=== PATIENT | male | born 1965 | race Hispanic/Latino ===

== ENCOUNTER 2017-04-03 13:52 | Inpatient (IN) | payer OTHER ==
[2017-04-03] MEDS ORDERED: Sodium Chloride 0.9% 1,000 ML IV STA ×2 (14:44→15:50)
[2017-04-03] MEDS ORDERED: Piperacillin/Tazobact 3.375 gm 100 ML IVPB STA (14:45)
--- NOTE | 2017-04-03 15:08 | RAD ---
HISTORY: right sided abdominal pain COMPARISON: 08/09/2012 FINDINGS: LUNGS: No active pulmonary disease. PLEURA: No significant pleural effusion identified, no pneumothorax apparent. CARDIOVASCULAR: No radiographic findings to suggest acute or significant cardiovascular disease. OSSEOUS STRUCTURES: No significant abnormalities. VISUALIZED UPPER ABDOMEN: Normal. OTHER FINDINGS: Superior mediastinal prominence likely vascular. Findings accentuated by portable technique. IMPRESSION: No active disease. No significant interval change compared to the prior examination(s).
[2017-04-03 15:18] LABS: VENOUS BLOOD PH 7.44 (7.32-7.43)
[2017-04-03 15:24] LABS: ALB/GLOB RATIO 1.2 (1.1-1.8); ALKALINE PHOSPHATASE 136 U/L (38-126); ALT/SGPT 57 U/L (7-56); AMYLASE 47 U/L (35-125); AST/SGOT 38 U/L (17-59); BILIRUBIN,TOTAL 0.6 mg/dL (0.2-1.3); BLOOD UREA NITROGEN 13 mg/dL (7-21); CALCIUM 9.5 mg/dL (8.4-10.5); CARBON DIOXIDE 28 mmol/L (21-33); CHLORIDE 97 mmol/L (98-107); GFR AFRICAN-AMERICAN > 60; GLUCOSE,RANDOM 104 mg/dL (70-110); LIPASE 65 U/L (23-300); POTASSIUM 4.4 mmol/L (3.6-5.0); SODIUM 137 mmol/L (132-148); TOTAL PROTEIN 8.2 g/dL (5.8-8.3)
[2017-04-03 15:34] LABS: TROPONIN I < 0.01 ng/mL
[2017-04-03 15:44] LABS: BASO # 0.01 K/mm3 (0.0-2.0); BASO % 0.1 % (0.0-3.0); EOS # 0.1 (0.0-0.7); EOS % 1.4 % (1.5-5.0); GRAN # 5.58 (1.4-6.5); GRAN % 65.1 % (50.0-68.0); HEMATOCRIT 38.7 % (42.0-52.0); LYMPH # 2.1 (1.2-3.4); LYMPH % 24.6 % (22.0-35.0); MEAN CELL VOLUME 85.8 fl (80.0-105.0); MEAN CORPUSCULAR HEMOGLOBIN 29.7 pg (25.0-35.0); MEAN CORPUSCULAR HGB CONC 34.6 g/dl (31.0-37.0); MEAN PLATELET VOLUME 9.3 fl (7.0-11.0); MONO # 0.8 (0.1-0.6); MONO % 8.8 % (1.0-6.0); RED CELL DISTRIBUTION WIDTH 12.4 % (11.5-14.5); WHITE BLOOD COUNT 8.6 10^3/ul (4.5-11.0)
[2017-04-03 15:47] LABS: INR 1.12 (0.93-1.08); PARTIAL THROMBOPLASTIN TIME 28.7 Seconds (23.7-30.8)
--- NOTE | 2017-04-03 15:53 | CP.PCM.CON ---
History of Present Illness - History of Present Illness History of Present Illness: General surgery consult note for Dr. Jewel Rojas, PGY-1 Pt S & E at bedside. 51M w/PMH sig for recent dx of cholelithiasis consulted for RUQ ab pain x 8 days. Pt reports that pain started intermittently, then became constant 6 days ago, severe, sharp with radiation to back. Admits to nausea, poor appetite/ poor PO intake, nbnb emesis - multiple episodes x 6 days, multiple episodes of diarrhea last Sat, subjective fevers and chills, diaphoresis. Denies CP, palpitations, constipation, hematemesis, hematochezia, hematuria, dysuria, other complaints. PMH: Cholelithiasis, herniated discs, hx gout PSH: Facial reconstruction, R knee replacement, Left foot sx All: Denies SH: Denies ETOH, tobacco or illicit drug use PMD: [place] Review of Systems - Review of Systems All systems: reviewed and no additional remarkable complaints except - Constitutional Constitutional: Chills, Fever. absent: Increased Appetite - EENT Eyes: absent: Change in Vision Nose/Mouth/Throat: absent: Dysphagia, Sore Throat - Cardiovascular Cardiovascular: absent: Chest Pain, Palpitations - Gastrointestinal Gastrointestinal: Abdominal Pain, Belching, Diarrhea, Nausea, Vomiting. absent : Constipation, Excessive Flatus, Hematemesis, Hematochezia, Melena - Genitourinary Genitourinary: absent: Change in Urinary Stream, Dysuria, Hematuria - Musculoskeletal Musculoskeletal: Back Pain, Neck Pain. absent: Numbness, Tingling - Integumentary Integumentary: absent: Rash - Neurological Neurological: absent: Tremor - Psychiatric Psychiatric: Change in Appetite (poor) - Endocrine Endocrine: absent: Fatigue Past Patient History - Infectious Disease Hx of Infectious Diseases: None - Tetanus Immunizations Tetanus Immunization: Unknown - Past Social History Smoking Status: Never Smoked - MUSCULOSKELETAL/RHEUMATOLOGICAL Hx Gout: Yes - PSYCHIATRIC Hx Substance Use: No - SURGICAL HISTORY Hx Musculoskeletal Surgery: Yes Other/Comment: Right knee replacement. Right foot hammer toe. Facial surgery Meds Allergies/Adverse Reactions: Allergies Allergy/AdvReac Type Severity Reaction Status Date / Time No Known Allergies Allergy Verified 04/03/17 14:14 - Medications Medications: Current Medications Sodium Chloride (Sodium Chloride 0.9%) 1,000 mls @ 999 mls/hr IV .Q1H1M STA Stop: 04/03/17 16:50 Physical Exam - Constitutional Appears: Non-toxic, No Acute Distress - Head Exam Head Exam: ATRAUMATIC, NORMAL INSPECTION, NORMOCEPHALIC - Eye Exam Eye Exam: EOMI, Normal appearance - ENT Exam ENT Exam: Mucous Membranes Moist, Normal Exam - Neck Exam Neck exam: Positive for: Full Rom, Normal Inspection - Respiratory Exam Respiratory Exam: Clear to Auscultation Bilateral, NORMAL BREATHING PATTERN - Cardiovascular Exam Cardiovascular Exam: REGULAR RHYTHM, +S1, +S2 - GI/Abdominal Exam GI & Abdominal Exam: Guarding (RUQ), Hyperactive Bowel Sounds, Soft, Tenderness (RUQ under costal margin with deep palpation). absent: Distended (obese), Firm , Rebound, Rigid - Extremities Exam Extremities exam: Positive for: normal inspection. Negative for: pedal edema - Neurological Exam Neurological exam: Alert, CN II-XII Intact, Oriented x3 - Psychiatric Exam Psychiatric exam: Normal Affect, Normal Mood - Skin Skin Exam: Dry, Intact, Normal Color, Warm Results - Vital Signs Recent Vital Signs: Last Vital Signs Temp 99 F 04/03/17 14:08 Pulse 99 H 04/03/17 14:08 Resp 18 04/03/17 14:08 BP 137/91 H 04/03/17 14:08 Pulse Ox 98 04/03/17 14:08 - Labs Result Diagrams: 04/03/17 14:50 04/03/17 14:50 Labs: Laboratory Results - last 24 hr 04/03/17 04/03/17 14:50 14:50 pO2 34 VBG pH 7.44 H VBG pCO2 44.0 VBG HCO3 29.9 H VBG Total CO2 31.3 H VBG O2 Sat (Calc) 76.8 H VBG Base Excess 5.0 H VBG Potassium 4.4 Sodium 135.0 137 Chloride 99.0 97 L Glucose 108 Lactate 1.4 FiO2 21.0 Potassium 4.4 Carbon Dioxide 28 Anion Gap 16 BUN 13 Creatinine 0.9 Est GFR ( Amer) > 60 Est GFR (Non-Af Amer) > 60 Random Glucose 104 Calcium 9.5 Total Bilirubin 0.6 AST 38 ALT 57 H Alkaline Phosphatase 136 H Lactate Dehydrogenase 413 Total Creatine Kinase 113 Troponin I < 0.01 Total Protein 8.2 Albumin 4.6 Globulin 3.7 Albumin/Globulin Ratio 1.2 Amylase 47 Lipase 65 Venous Blood Potassium 4.4 Assessment & Plan - Assessment and Plan (Free Text) Assessment: 51M w/symptomatic cholelithiasis, possible cholecystitis Plan: NPO Pain mgmt Anti-emetics IVF Abx FU AM labs FU Ab U/S GI/DVT ppx Further recs pending test results DW attending Crystal, PGY-1 - Date & Time Date: 04/03/17 Time: 15:30
--- NOTE | 2017-04-03 16:00 | ED PDOC ---
Arrival/HPI - General Chief Complaint: Abdominal Pain Time Seen by Provider: 04/03/17 14:10 Historian: Patient - History of Present Illness Narrative History of Present Illness (Text): 04/03/17 15:55 Patient is a 51 yo male, presents to ED complaining of constant right upper quadrant abdominal pain since March 26, now worse in intensity and associated with intermittent nausea and vomiting. Patient states that over one month ago he developed right sided back pain that he attributed to possibly his "golf swing." This back pain was intermittent and NOT associated with meals, no nausea, no fever, no chest pain or sob. Approximately March 26 he has sudden onset of right upper quadrant abdominal pain and this pain was radiating to back , associated with nausea and vomiting, lack of appetite. The patient saw his PMD Dr. Vasquez and outpatient MRI and ultrasound was ordered. Ultrasound performed at outside facility revealed gallstones reportedly. Patient states abdominal pain is worse in severity and associated with more nausea and weight loss as well. Past Medical History - Infectious Disease Hx of Infectious Diseases: None - Tetanus Immunization Tetanus Immunization: Unknown - Musculoskeletal/Rheumatological Hx Gout: Yes - Psychiatric Hx Substance Use: No - Surgical History Hx Musculoskeletal Surgery: Yes Other/Comment: Right knee replacement. Right foot hammer toe. Facial surgery Family/Social History Smoking Status: Never Smoked Hx Alcohol Use: No Hx Substance Use: No Allergies/Home Meds Allergies/Adverse Reactions: Allergies No Known Allergies Allergy (Verified 04/03/17 14:14) Home Medications: Home Meds Medication Instructions Recorded Confirmed Tramadol HCl/Acetaminophen 1 tab PO BID 04/03/17 04/03/17 [Tramadol-Acetaminophn 37.5-325] Review of Systems - Review of Systems Constitutional: Fatigue, Weight Change, Fevers. absent: Night Sweats Eyes: absent: Vision Changes ENT: absent: Hearing Changes Respiratory: absent: SOB Cardiovascular: absent: Chest Pain Gastrointestinal: Abdominal Pain, Stool Changes, Nausea, Vomiting, Appetite Changes. absent: Diarrhea, Hematochezia, Hematemesis Genitourinary Male: absent: Dysuria, Frequency Musculoskeletal: Back Pain Skin: absent: Rash Neurological: absent: Headache, Dizziness, Focal Weakness Endocrine: absent: Polyuria, Polydipsia Hemo/Lymphatic: absent: Easy Bleeding Physical Exam - Physical Exam Narrative Physical Exam (Text): 04/03/17 16:02 Head: Atraumatic. Normocephalic. Eyes: PERRL. EOMI. Conjunctivae are not pale. Sclera anicteric. ENT: Mucous membranes are dry. Oropharynx is clear and symmetric. Neck: Supple. Full ROM. No JVD. No lymphadenopathy. Cardiovascular: Regular rate. Regular rhythm. No murmurs, rubs, or gallops. Distal pulses are 2+ and symmetric. Pulmonary/Chest: No evidence of respiratory distress. Clear to auscultation bilaterally. No wheezing, rales or rhonchi. Abdominal: Soft and non-distended. Positive Jones's sign. Focal tenderness to RUQ. No midline or lower abdominal pain. No pulsatile masses. Back: No CVA tenderness. No erythema or edema. No pain with straight leg testing. Extremities: No edema. No cyanosis. No clubbing. Full range of motion in all extremities. No calf tenderness. Skin: Skin is diaphoretic. Neurological: Alert, awake, and oriented. Normal speech. Motor and sensory exam intact. Psychiatric: Good eye contact. Normal interaction, affect, and behavior. 04/03/17 16:04 Vital Signs Reviewed: Yes Vital Signs Temp Pulse Resp BP Pulse Ox 04/03/17 17:30 78 18 143/99 H 100 04/03/17 14:08 99 F 99 H 18 137/91 H 98 Temperature: Afebrile Appearance: Positive for: Ill-Appearing, Uncomfortable Pain Distress: Moderate Mental Status: Positive for: Alert and Oriented X 3 Medical Decision Making ED Course and Treatment: 04/03/17 16:06 Patient's history supplemented by family member at bedside. On exam, patient is uncomfortable, focal palpable RUQ pain. Afebrile but nauseous and tender to palpation. I reviewed the provided ultrasound report from 03/30 performed at outside facility. Although I feel patient has component of musculoskeletal back pain, current symptoms are palpable in abdomen and given recent diagnosis of cholelithiasis I am suspicious of biliary colic and cholecystitis as pain constant and worsening for past several days associated with nausea and fever sensation. IV fluids initiated. Based on initial exam, Dr. Piedra, GI, and Dr. Negro, surgery consulted. Dr. Piedra presented to ED and has evaluated patient. I reviewed ordered medications with patient, agreeable to Toradol, and will also initiate iv fluids and antibiotics given severity of pain, history of chills. Initial lactate unremarkable. Ultrasound and HIDA ordered, results pending. Patient currently with no complaints of chest pain or shortness of breath or exertional symptoms. 04/03/17 20:00 HIDA scan results communicated to surgical team. Patient admitted onto floor. - Lab Interpretations Lab Results: 04/03/17 14:50 04/03/17 14:50 Lab Results 04/03/17 14:50: Sodium 137, Chloride 97 L, Potassium 4.4, Carbon Dioxide 28, Anion Gap 16, BUN 13, Creatinine 0.9, Est GFR ( Amer) > 60, Est GFR (Non- Af Amer) > 60, Random Glucose 104, Calcium 9.5, Total Bilirubin 0.6, AST 38, ALT 57 H, Alkaline Phosphatase 136 H, Lactate Dehydrogenase 413, Total Creatine Kinase 113, Troponin I < 0.01, Total Protein 8.2, Albumin 4.6, Globulin 3.7, Albumin/Globulin Ratio 1.2, Amylase 47, Lipase 65 04/03/17 14:50: pO2 34, VBG pH 7.44 H, VBG pCO2 44.0, VBG HCO3 29.9 H, VBG Total CO2 31.3 H, VBG O2 Sat (Calc) 76.8 H, VBG Base Excess 5.0 H, VBG Potassium 4.4, Sodium 135.0, Chloride 99.0, Glucose 108, Lactate 1.4, FiO2 21.0 , Venous Blood Potassium 4.4 04/03/17 14:50: WBC 8.6, RBC 4.51, Hgb 13.4 L, Hct 38.7 L, MCV 85.8, MCH 29.7, MCHC 34.6, RDW 12.4, Plt Count 444, MPV 9.3, Gran % 65.1, Lymph % (Auto) 24.6, [place] % (Auto) 8.8 H, Eos % (Auto) 1.4 L, Baso % (Auto) 0.1, Gran # 5.58, Lymph # 2.1, [place] # 0.8 H, Eos # 0.1, Baso # 0.01 04/03/17 14:41: PT 12.1 H, INR 1.12 H, APTT 28.7 - RAD Interpretation Radiology Orders: 04/03/17 14:41 CHEST PORTABLE [RAD] Stat 04/03/17 14:55 BILIARY SCAN (HIDA) [NM] Stat 04/03/17 15:45 ABDOMEN COMPLETE [US] Stat - EKG Interpretation EKG Interpretation (Text): 04/03/17 16:10 EKG at 14:53 normal sinus rhythm rate of 83, no acute st elevations Interpreted by ED Physician: Yes Type: 12 lead EKG - Medication Orders Current Medication Orders: Metronidazole (Flagyl) 500 mg in 100 mls @ 100 mls/hr IVPB Q8 KELSY PRN Reason: Protocol Last Admin: 04/03/17 21:14 Dose: 100 mls/hr Ceftriaxone Sodium (Rocephin 1 Gram Ivpb) 1 gm in 100 mls @ 100 mls/hr IVPB DAILY KELSY PRN Reason: Protocol Last Admin: 04/03/17 17:24 Dose: 100 mls/hr Sodium Chloride (Sodium Chloride 0.9%) 1,000 mls @ 150 mls/hr IV .Q6H40M [facility] Last Admin: 04/03/17 17:40 Dose: 150 mls/hr Morphine Sulfate (Morphine) 2 mg IVP Q6H PRN PRN Reason: Pain, moderate (4-7) Last Admin: 04/03/17 21:13 Dose: 2 mg Morphine Sulfate (Morphine) 4 mg IVP Q6H PRN PRN Reason: Pain, severe (8-10) Ondansetron HCl (Zofran Inj) 4 mg IVP Q4H PRN PRN Reason: Nausea/Vomiting Pantoprazole Sodium (Protonix Inj) 40 mg IVP DAILY [facility] Discontinued Medications Famotidine (Pepcid) 20 mg IVP STAT STA Stop: 04/03/17 14:45 Last Admin: 04/03/17 14:53 Dose: 20 mg Sodium Chloride (Sodium Chloride 0.9%) 1,000 mls @ 1,000 mls/hr IV .Q1H STA Stop: 04/03/17 15:43 Last Admin: 04/03/17 14:53 Dose: 1,000 mls/hr Piperacillin Sod/Tazobactam Sod (Zosyn 3.375 In Ns 100ml) 100 mls @ 200 mls/hr IVPB STAT STA PRN Reason: Protocol Stop: 04/03/17 15:14 Last Admin: 04/03/17 15:14 Dose: 200 mls/hr Sodium Chloride (Sodium Chloride 0.9%) 1,000 mls @ 999 mls/hr IV .Q1H1M STA Stop: 04/03/17 16:50 Last Admin: 04/03/17 15:54 Dose: 999 mls/hr Sodium Chloride (Sodium Chloride 0.9%) 1,000 mls @ 100 mls/hr IV .Q10H KELSY Ketorolac Tromethamine (Toradol) 30 mg IVP ONCE ONE Stop: 04/03/17 14:46 Last Admin: 04/03/17 14:53 Dose: 30 mg Ondansetron HCl (Zofran Inj) 4 mg IVP ONCE ONE Stop: 04/03/17 14:45 Last Admin: 04/03/17 14:53 Dose: 4 mg - Scribe Statement The provider has reviewed the documentation as recorded by the Nisha Garay Provider Scribe Attestation: All medical record entries made by the Locibmargaux were at my direction and personally dictated by me. I have reviewed the chart and agree that the record accurately reflects my personal performance of the history, physical exam, medical decision making, and the department course for this patient. I have also personally directed, reviewed, and agree with the discharge instructions and disposition. Disposition/Present on Arrival - Present on Arrival Any Indicators Present on Arrival: No History of DVT/PE: No History of Uncontrolled Diabetes: No Urinary Catheter: No History of Decub. Ulcer: No History Surgical Site Infection Following: None - Disposition Have Diagnosis and Disposition been Completed?: Yes Diagnosis: Abdominal pain, Cholecystitis Disposition: HOSPITALIZED Disposition Time: 16:11 Patient Plan: Admission Patient Problems: Current Active Problems Problem Status Onset Abdominal pain Acute Condition: FAIR
[2017-04-03] MEDS ORDERED: Sodium Chloride 0.9% 1,000 ML IV SCH (16:30)
[2017-04-03] MEDS: cefTRIAXone 1 gm 1 GM/100 ML BAG IVPB SCH (17:24)
[2017-04-03 17:29] LABS: PH,URINE 6.5 (4.7-8.0); URINE BILIRUBIN NEGATIVE (NEGATIVE); URINE BLOOD NEGATIVE (NEGATIVE); URINE GLUCOSE (UA) NEGATIVE (NEGATIVE); URINE KETONE NEGATIVE (NEGATIVE); URINE LEUKOCYTE ESTERASE NEGATIVE Leu/uL (NEGATIVE); URINE PROTEIN NEGATIVE mg/dL (<30 mg/dL); URINE UROBILINOGEN 0.2 E.U./dL (<1 E.U./dL)
[2017-04-03 17:35] LABS: URINE APPEARANCE CLEAR (CLEAR); URINE COLOR YELLOW (YELLOW)
[2017-04-03] MEDS: Sodium Chloride 0.9% 1,000 ML IV SCH (17:40)
--- NOTE | 2017-04-03 18:08 | CP.PCM.HP ---
<Fredy Lima - Last Filed: 04/05/17 13:47> History of Present Illness - History of Present Illness History of Present Illness: This is a 51 yr. old male with a past medical history of Gout who came to [facility] after complaining of RUQ pain since 03/26/17. The patient describes the pain as sharp in nature that initially radiated to the back but now is solely located in the ruq. The patient rates the pain 10/10 in intensity and denies any alleviating factors. The patient began to notice over the past week and a half the pain was worse right after eating and drinking water. The pain was associated with multiple episodes of non-bilious, non- bloody diarrhea. The patient also reported an shortness of breath in conjunction with the pain. The patient was to have an appointment with Dr. Piedra next (04/07/17), however the pain became unbearable and he decided to come in. The patient denies any chest pain, dizziness, numbness, tingling, constipation, diarrhea, headaches, sore throat, or any other complaints. PMHx: Gout (last dose of Colchicine was six months ago) Meds: None Allergies: NKDA Surgeries hx: Right foot hammer toe (2006), Right knee replacement (2012), Left wrist and thumb tendon replacement (1987), Reconstructive facial surgery (1987) Hosp hx: Pneumonia (18yrs old), GI infection (25 yrs. ago) PMD: Dr. Vasquez Present on Admission - Present on Admission Any Indicators Present on Admission: No Review of Systems - Constitutional Constitutional: Weight Loss. absent: Chills, Sleep Apnea - EENT Eyes: As Per HPI. absent: Discharge, Dry Eye Ears: As Per HPI Nose/Mouth/Throat: As Per HPI - Cardiovascular Cardiovascular: As Per HPI - Respiratory Respiratory: As Per HPI - Gastrointestinal Gastrointestinal: As Per HPI - Genitourinary Genitourinary: As Per HPI - Musculoskeletal Musculoskeletal: As Per HPI - Integumentary Integumentary: As Per HPI - Neurological Neurological: As Per HPI - Psychiatric Psychiatric: As Per HPI - Endocrine Endocrine: As Per HPI Past Patient History - Infectious Disease Hx of Infectious Diseases: None - Tetanus Immunizations Tetanus Immunization: Unknown - Past Medical History & Family History Past Family History: Reviewed and not pertinent - Past Social History Smoking Status: Never Smoked - MUSCULOSKELETAL/RHEUMATOLOGICAL Hx Gout: Yes - PSYCHIATRIC Hx Substance Use: No - SURGICAL HISTORY Hx Musculoskeletal Surgery: Yes Other/Comment: Right knee replacement. Right foot hammer toe. Facial surgery Meds Allergies/Adverse Reactions: Allergies Allergy/AdvReac Type Severity Reaction Status Date / Time No Known Allergies Allergy Verified 04/03/17 14:14 Physical Exam - Constitutional Appears: Well, Non-toxic - Head Exam Head Exam: ATRAUMATIC, NORMAL INSPECTION, NORMOCEPHALIC - Eye Exam Eye Exam: EOMI, Normal appearance, PERRL Pupil Exam: NORMAL ACCOMODATION, PERRL - ENT Exam ENT Exam: Mucous Membranes Moist - Neck Exam Neck exam: Positive for: Normal Inspection - Respiratory Exam Respiratory Exam: Clear to Auscultation Bilateral, NORMAL BREATHING PATTERN. absent: Accessory Muscle Use, Chest Wall Tenderness, Rales, Rhonchi - Cardiovascular Exam Cardiovascular Exam: REGULAR RHYTHM, RRR, +S1, +S2. absent: Rubs - GI/Abdominal Exam Additional comments: Positive Jones's sign. - Extremities Exam Extremities exam: Positive for: normal inspection - Back Exam Back exam: NORMAL INSPECTION. absent: CVA tenderness (L), CVA tenderness (R), paraspinal tenderness - Neurological Exam Neurological exam: Alert, CN II-XII Intact, Normal Gait, Oriented x3, Reflexes Normal - Psychiatric Exam Psychiatric exam: Flat Affect, Normal Affect, Normal Mood - Skin Skin Exam: Dry, Intact, Normal Color Results - Vital Signs Recent Vital Signs: Last Vital Signs Temp 99 F 04/03/17 14:08 Pulse 78 04/03/17 17:30 Resp 18 04/03/17 17:30 BP 143/99 H 04/03/17 17:30 Pulse Ox 100 04/03/17 17:30 - Labs Result Diagrams: 04/05/17 08:15 04/05/17 08:15 Labs: Laboratory Results - last 24 hr 04/03/17 17:11 Urine Color Yellow Urine Appearance Clear Urine pH 6.5 Ur Specific [place] <= 1.005 Urine Protein Negative Urine Glucose (UA) Negative Urine Ketones Negative Urine Blood Negative Urine Nitrate Negative Urine Bilirubin Negative Urine Urobilinogen 0.2 Ur Leukocyte Esterase Negative - EKG Data EKG Interpreted by: ER Physician EKG shows normal: Sinus rhythm Rate: Normal - EKG Data When Compared to Previous EKG: No Significant Change Assessment & Plan - Assessment and Plan (Free Text) Assessment: 1.Cholecystitis vs. biliary colic -Positive Jones's sign noted on physical exam. VS: 99f, 137/91, 98RA, 99HR -Ordered Abdominal u/s : showed thickened gall bladder and a gallstone within the duct. -T. Bili-0.6, ALT-57, AST-38 -Hida scan ordered and pending -Surgery Consult appreciated. -GI consult appreciated. -Patient kept NPO and given bolus IV fluids (NS) -Continue IV fluids. Patient is medically cleared for surgery -Patient expected to have Cholecystecomy tomorrow per Surgery. 2.Less likely ascending cholangitis vs. biliary colic -RUQ pain present on PE. Negative for jaundice and afebrile -Consider ERCP if Clinical picture changes overnight. 3. Less likely viral hepatitis -ALT elevated at 57. -Denies any risk factors. Patient Afebrile and no signs of leukocytosis. 3.Gout -Patient denies any recent flare up. -Last dose of Colchicine was taken six months ago. -Monitor and have patient follow up as outpatient. 4.GI ppx -Start Protonix 5. DVT ppx -SCD's <Yan Avalos - Last Filed: 04/05/17 14:00> Results - Vital Signs Recent Vital Signs: Last Vital Signs Temp 98.7 F 04/05/17 13:30 Pulse 80 04/05/17 13:30 Resp 18 04/05/17 13:30 BP 147/93 H 04/05/17 13:30 Pulse Ox 98 04/05/17 13:30 - Labs Result Diagrams: 04/05/17 08:15 04/05/17 08:15 Labs: Laboratory Results - last 24 hr 04/05/17 04/05/17 08:15 08:15 WBC 7.1 RBC 4.07 Hgb 12.1 L Hct 35.2 L MCV 86.5 MCH 29.7 MCHC 34.4 RDW 12.3 Plt Count 383 MPV 9.0 Gran % 62.8 Lymph % (Auto) 23.2 [place] % (Auto) 10.0 H Eos % (Auto) 3.9 Baso % (Auto) 0.1 Gran # 4.46 Lymph # 1.7 [place] # 0.7 H Eos # 0.3 Baso # 0.01 Sodium 140 Potassium 4.3 Chloride 101 Carbon Dioxide 28 Anion Gap 15 BUN 12 Creatinine 0.9 Est GFR ( Amer) > 60 Est GFR (Non-Af Amer) > 60 Random Glucose 97 Calcium 8.9 Total Bilirubin 0.7 AST 46 ALT 52 Alkaline Phosphatase 119 Total Protein 7.5 Albumin 4.0 Globulin 3.5 Albumin/Globulin Ratio 1.1 Attending/Attestation - Attestation I have personally seen and examined this patient.: Yes I have fully participated in the care of the patient.: Yes I have reviewed all pertinent clinical information: Yes Notes (Text): 04/05/17 13:59 Attending note; Patient seen and examined with resident in ER. Patient is a 51-year-old male admitted with right upper quadrant pain. Patient with a history of gallstones now with recurrent biliary colic. Ultrasound showed gallstones. HIDA scan ordered. Surgery evaluation with Dr. Negro requested. Nothing by mouth, IV fluids, IV antibiotics. Upon discharge the patient will follow-up with PMD Dr. Vasquez.
[2017-04-03 19:47] VITALS: BMI 31.3
--- NOTE | 2017-04-03 19:58 | US ---
EXAM: US Abdomen Complete EXAM DATE/TIME: 04/03/2017 3:45 PM CLINICAL HISTORY: 51 years old, male; Pain; Abdominal pain; Generalized TECHNIQUE: Real-time ultrasound of the abdomen (complete) with image documentation. COMPARISON: There are no prior studies for comparison. FINDINGS: Liver: Liver is unremarkable.There is hepatopedal flow in the main portal vein. Gallbladder: Gallbladder is distended with sludge. There is a 1.65 cm shadowing stone. Gallbladder wall measures 2.4 mm in width. Common bile duct: Common bile duct measures 3.7 mm in diameter. Pancreas: Pancreas is almost completely obscured by bowel gas. Kidneys: Kidneys are unremarkable. Spleen: Spleen is unremarkable. Aorta: Visualized portions of the aorta and inferior vena cava are unremarkable. Inferior vena cava: See above. IMPRESSION: Distended gallbladder with stones and sludge, no wall thickening or ductal dilatation; limited evaluation of midline structures to the bowel gas and body habitus Patient was not tender over the gallbladder
[2017-04-03] MEDS: Morphine 2 mg/ml ISec IVP PRN (21:13)
[2017-04-03] MEDS: metroNIDAZOLE IV 500 mg/100 ml 500 MG/100 ML BAG IVPB SCH (21:14)
[2017-04-03] MEDS ORDERED: Simethicone 40 mg/0.6 ml Liquid (30 ml) PO ONE (23:15)
[2017-04-04] MEDS ORDERED: Morphine 2 mg/ml ISec IVP ONE (00:45)
--- NOTE | 2017-04-04 04:13 | CON ---
DATE: 04/03/2017 HISTORY OF PRESENT ILLNESS: This patient was seen and evaluated earlier. Discussed with ER physician Dr. Nesbitt and also with the patient's family and who was at bedside along with the patient. This 51-year-old patient with past medical history of gout. He has an abdominal pain more than a week ago and the patient experienced the pain mainly in the right upper quadrant of the back area, went to the emergency room where he had CAT scan done. She was sent home to be followed up and she was seen by the primary physician and who ordered for the ultrasound, which showed gallstones. The patient had an appointment to see me in the office this week, but presented with worsening of the abdominal pain and the patient became more constant. The patient did have an ultrasound done as an outpatient, which showed gallstones. No fever. ALLERGIES: NO KNOWN DRUG ALLERGIES. PAST SURGICAL HISTORY: Right hammer toe surgery and also right knee replacement in 2012 and left wrist and thumb tendon replacement in 1997, recurrent facial surgery in 1997. PAST MEDICAL HISTORY: Also includes history of pneumonia many many years ago. SOCIAL HISTORY: He denies smoking or alcohol. REVIEW OF SYSTEMS: Positive as above. Other systems reviewed. PHYSICAL EXAMINATION: GENERAL: The patient is lying on the bed, not in acute distress. VITAL SIGNS: Temperature 99, pulse 78, blood pressure 143/99, respirations 18, and O2 saturation 100% on room air. HEENT: Atraumatic and anicteric. NECK: Supple. HEART: S1 and S2 heard. LUNGS: Bilateral air entry present. ABDOMEN: Soft. There is no mass palpable. No tenderness. EXTREMITIES: No edema. No cyanosis. LABORATORY DATA: Hemoglobin 13.4, hematocrit 38.7, WBC is 8.6, and platelets 444. Chemistry is essentially unremarkable. ALT 57. The patient did have an ultrasound scan of the abdomen done, which shows gallbladder distended with the sludge. There is 1.65 cm shadowing stone noticed. Gallbladder wall is normal with 2.4. Common bile duct appeared normal 3.7. The patient also had HIDA scan done. HIDA scan report is pending. IMPRESSION AND PLAN: This 51-year-old patient admitted with gallstones. Admitted with constant pain, worsening of the symptoms for the past few days. History of gouty arthritis. The patient has mildly elevated liver enzymes; however, the common bile duct is normal in size. Clinically, rule out biliary colic. Rule out cholecystitis as the intensity of the pain is severe and also constant. We would recommend; 1. Followup of the official HIDA scan results. 2. Continue the antibiotics. Followup of the labs. Empiric therapy with PPI. I would recommend intraoperative cholangiogram if cholecystectomy is considered. Thank you very much for allowing us to participate in the care of the patient. Marty Piedra MD MTDJessica
[2017-04-04] MEDS: Morphine 2 mg/ml ISec IVP PRN ×2 (05:35→14:45)
[2017-04-04] MEDS: metroNIDAZOLE IV 500 mg/100 ml 500 MG/100 ML BAG IVPB SCH ×3 (05:35→21:31)
[2017-04-04] MEDS: Sodium Chloride 0.9% 1,000 ML IV SCH ×2 (05:37→10:15)
[2017-04-04 07:08] LABS: BASO # 0.02 K/mm3 (0.0-2.0); BASO % 0.3 % (0.0-3.0); EOS # 0.3 (0.0-0.7); EOS % 3.7 % (1.5-5.0); GRAN # 4.34 (1.4-6.5); GRAN % 58.8 % (50.0-68.0); HEMATOCRIT 36.2 % (42.0-52.0); LYMPH % 27.6 % (22.0-35.0); MEAN CELL VOLUME 87.2 fl (80.0-105.0); MEAN CORPUSCULAR HEMOGLOBIN 29.2 pg (25.0-35.0); MEAN CORPUSCULAR HGB CONC 33.4 g/dl (31.0-37.0); MEAN PLATELET VOLUME 9.2 fl (7.0-11.0); MONO # 0.7 (0.1-0.6); MONO % 9.6 % (1.0-6.0); RED CELL DISTRIBUTION WIDTH 12.5 % (11.5-14.5); WHITE BLOOD COUNT 7.4 10^3/ul (4.5-11.0)
[2017-04-04 07:14] LABS: INR 1.11 (0.93-1.08)
[2017-04-04 07:19] LABS: ALB/GLOB RATIO 1.1 (1.1-1.8); ALKALINE PHOSPHATASE 121 U/L (38-126); ALT/SGPT 48 U/L (7-56); AST/SGOT 37 U/L (17-59); BILIRUBIN,TOTAL 0.8 mg/dL (0.2-1.3); BLOOD UREA NITROGEN 11 mg/dL (7-21); CALCIUM 8.9 mg/dL (8.4-10.5); CARBON DIOXIDE 27 mmol/L (21-33); CHLORIDE 101 mmol/L (95-110); GFR AFRICAN-AMERICAN > 60; GLUCOSE,RANDOM 101 mg/dL (70-110); POTASSIUM 4.5 mmol/L (3.6-5.0); SODIUM 137 mmol/L (132-148); TOTAL PROTEIN 7.8 g/dL (5.8-8.3)
--- NOTE | 2017-04-04 10:11 | NM ---
PROCEDURE: Nuclear Medicine Hepatobiliary Scan HISTORY: evaluate for cholecystitis COMPARISON: None available. TECHNIQUE: 5.9 mCi of technetium 99m Mebrofenin was administered intravenously. Planar images of the abdomen were obtained at 5 min intervals to 60 mins. Delayed images were also obtained. FINDINGS: LIVER: Timely and homogenous uptake. COMMON BILE DUCT: identified at 5 mins. GALLBLADDER: Nonvisualized even on delayed images SMALL BOWEL: Identified at 30 mins. The report concurs with the preliminary [facility] report IMPRESSION: Nonvisualization of the gallbladder consistent with cholecystitis
[2017-04-04] MEDS: cefTRIAXone 1 gm 1 GM/100 ML BAG IVPB SCH (10:15)
--- NOTE | 2017-04-04 11:16 | CARD ---
APPROVED REPORT EKG Measurement Heart [id number] [place] 176P54 [id number] <Conclusion> Normal sinus rhythm Normal ECG
[2017-04-04] MEDS ORDERED: Bupivacaine 0.5% Inj(30mL) ONE ×3 (11:24→12:19)
[2017-04-04] MEDS ORDERED: Iohexol 240 (50 ml) ONE ×2 (11:24→12:16)
--- NOTE | 2017-04-04 12:10 | CP.PCM.PN ---
<Fredy Lima - Last Filed: 04/04/17 17:53> Subjective - Date & Time of Evaluation Date of Evaluation: 04/04/17 Time of Evaluation: 07:07 - Subjective Subjective: Patient was seen and examined at bedside. Patient reports pain in the right upper quadrant that he rates a 6/10. She also reports nausea in conjunction with the abdominal pain. The patient has yet to have a bowel movement since being admitted yesterday. She denies any chest pain vomiting, lightheadedness, dizziness, diarrhea, or any other complaints. Objective - Vital Signs/Intake and Output Vital Signs (last 24 hours): Temp Pulse Resp BP Pulse Ox 98.2 F 75 19 142/85 100 04/04/17 07:30 04/04/17 07:30 04/04/17 07:30 04/04/17 07:30 04/04/17 07:30 Intake and Output: 04/04/17 04/04/17 06:59 18:59 Intake Total 240 Output Total 0 Balance 240 - Medications Medications: Current Medications Metronidazole (Flagyl) 500 mg in 100 mls @ 100 mls/hr IVPB Q8 [facility] PRN Reason: Protocol Last Admin: 04/04/17 05:35 Dose: 100 mls/hr Ceftriaxone Sodium (Rocephin 1 Gram Ivpb) 1 gm in 100 mls @ 100 mls/hr IVPB DAILY [facility] PRN Reason: Protocol Last Admin: 04/04/17 10:15 Dose: 100 mls/hr Sodium Chloride (Sodium Chloride 0.9%) 1,000 mls @ 150 mls/hr IV .Q6H40M [facility] Last Admin: 04/04/17 10:15 Dose: 150 mls/hr Morphine Sulfate (Morphine) 2 mg IVP Q6H PRN PRN Reason: Pain, moderate (4-7) Last Admin: 04/04/17 05:35 Dose: 2 mg Morphine Sulfate (Morphine) 4 mg IVP Q6H PRN PRN Reason: Pain, severe (8-10) Ondansetron HCl (Zofran Inj) 4 mg IVP Q4H PRN PRN Reason: Nausea/Vomiting Last Admin: 04/04/17 08:02 Dose: 4 mg Pantoprazole Sodium (Protonix Inj) 40 mg IVP DAILY [facility] Last Admin: 04/04/17 10:15 Dose: 40 mg - Labs Labs: 04/04/17 06:15 04/04/17 06:15 PT 12.0 Seconds (9.9-11.8) H 04/04/17 06:15 INR 1.11 (0.93-1.08) H 04/04/17 06:15 APTT 28.0 Seconds (23.7-30.8) 04/04/17 06:15 - Head Exam Head Exam: ATRAUMATIC, NORMAL INSPECTION, NORMOCEPHALIC - Eye Exam Eye Exam: EOMI, Normal appearance, PERRL Pupil Exam: NORMAL ACCOMODATION, PERRL. absent: Irregular - ENT Exam ENT Exam: Mucous Membranes Moist - Neck Exam Neck Exam: Normal Inspection - Respiratory Exam Respiratory Exam: Clear to Ausculation Bilateral, NORMAL BREATHING PATTERN. absent: Rales, Rhonchi - Cardiovascular Exam Cardiovascular Exam: REGULAR RHYTHM, +S1, +S2 - GI/Abdominal Exam GI & Abdominal Exam: Soft, Tenderness (Tenderness in the ruq to palpation.), Normal Bowel Sounds - Extremities Exam Extremities Exam: Full ROM - Back Exam Back Exam: NORMAL INSPECTION. absent: paraspinal tenderness - Neurological Exam Neurological Exam: Alert, Awake, CN II-XII Intact, Normal Gait - Psychiatric Exam Psychiatric exam: Normal Affect, Normal Mood - Skin Skin Exam: Dry, Intact Assessment and Plan - Assessment and Plan (Free Text) Assessment: This is a 51 yr old male with a past medical history of gout who came in with RUQ pain. Plan: 1.Cholecystitis vs. biliary colic -Positive Jones's sign noted on physical exam. VS: 99f, 137/91, 98RA, 99HR -Ordered Abdominal u/s : showed thickened gall bladder and a gallstone within the duct. -T. Bili-0.6, ALT-57, AST-38 -Hida scan: consistent with acute cholecystitis and no signs of biliary obstruction -Surgery Consult appreciated. -GI consult appreciated. -Patient kept NPO and given bolus IV fluids (NS) -Continue IV fluids. Patient is medically cleared for surgery -Patient expected to have Cholecystecomy today. 2.Less likely ascending cholangitis vs. biliary colic -RUQ pain present on PE. Negative for jaundice and afebrile -Consider ERCP if Clinical picture doesn't improve after surgery. 3.Gout -Patient denies any recent flare up. -Last dose of Colchicine was taken six months ago. -Monitor and have patient follow up as outpatient. 4.GI ppx -Start Protonix 5. DVT ppx -SCD's <Yan Avalos - Last Filed: 04/04/17 19:07> Objective - Vital Signs/Intake and Output Vital Signs (last 24 hours): Temp Pulse Resp BP Pulse Ox 98.8 F 81 16 143/100 H 100 04/04/17 16:00 04/04/17 16:00 04/04/17 16:00 04/04/17 16:00 04/04/17 16:00 - Medications Medications: Current Medications Metronidazole (Flagyl) 500 mg in 100 mls @ 100 mls/hr IVPB Q8 [facility] PRN Reason: Protocol Last Admin: 04/04/17 14:42 Dose: 100 mls/hr Ceftriaxone Sodium (Rocephin 1 Gram Ivpb) 1 gm in 100 mls @ 100 mls/hr IVPB DAILY [facility] PRN Reason: Protocol Last Admin: 04/04/17 10:15 Dose: 100 mls/hr Sodium Chloride (Sodium Chloride 0.9%) 1,000 mls @ 150 mls/hr IV .Q6H40M [facility] Last Admin: 04/04/17 10:15 Dose: 150 mls/hr Morphine Sulfate (Morphine) 2 mg IVP Q6H PRN PRN Reason: Pain, moderate (4-7) Last Admin: 04/04/17 14:45 Dose: 2 mg Morphine Sulfate (Morphine) 4 mg IVP Q6H PRN PRN Reason: Pain, severe (8-10) Ondansetron HCl (Zofran Inj) 4 mg IVP Q4H PRN PRN Reason: Nausea/Vomiting Last Admin: 04/04/17 17:02 Dose: 4 mg Pantoprazole Sodium (Protonix Inj) 40 mg IVP DAILY [facility] Last Admin: 04/04/17 10:15 Dose: 40 mg - Labs Labs: 04/04/17 06:15 04/04/17 06:15 PT 12.0 Seconds (9.9-11.8) H 04/04/17 06:15 INR 1.11 (0.93-1.08) H 04/04/17 06:15 APTT 28.0 Seconds (23.7-30.8) 04/04/17 06:15 Attending/Attestation - Attestation I have personally seen and examined this patient.: Yes I have fully participated in the care of the patient.: Yes I have reviewed all pertinent clinical information, including history, physical exam and plan: Yes Notes (Text): 04/04/17 19:05 Attending note; Patient seen and examined with resident. Patient is a 51-year-old male admitted with right upper quadrant pain. Patient with a history of gallstones now with recurrent biliary colic. Ultrasound showed gallstones. HIDA scan is positive for acute cholecystitis. Surgery evaluation appreciated Nothing by mouth, IV fluids, IV antibiotics. Plan for laparoscopic cholecystectomy today by Dr. Negro. Upon discharge the patient will follow-up with PMD Dr. Vasquez.
--- NOTE | 2017-04-04 13:56 | CP.PCM.PN ---
<Arianna Cardenas - Last Filed: 04/04/17 13:54> Subjective - Date & Time of Evaluation Date of Evaluation: 04/04/17 Time of Evaluation: 09:25 - Subjective Subjective: seen and examined at the bedside earlier today, the chart was reviewed. Patient is nothing by mouth for OR today, no acute events reported, abdominal pain is a bit better. Objective - Vital Signs/Intake and Output Vital Signs (last 24 hours): Temp Pulse Resp BP Pulse Ox 98.2 F 75 19 142/85 100 04/04/17 07:30 04/04/17 07:30 04/04/17 07:30 04/04/17 07:30 04/04/17 07:30 Intake and Output: 04/04/17 04/04/17 06:59 18:59 Intake Total 240 Output Total 0 Balance 240 - Medications Medications: Current Medications Metronidazole (Flagyl) 500 mg in 100 mls @ 100 mls/hr IVPB Q8 [facility] PRN Reason: Protocol Last Admin: 04/04/17 05:35 Dose: 100 mls/hr Ceftriaxone Sodium (Rocephin 1 Gram Ivpb) 1 gm in 100 mls @ 100 mls/hr IVPB DAILY [facility] PRN Reason: Protocol Last Admin: 04/04/17 10:15 Dose: 100 mls/hr Sodium Chloride (Sodium Chloride 0.9%) 1,000 mls @ 150 mls/hr IV .Q6H40M [facility] Last Admin: 04/04/17 10:15 Dose: 150 mls/hr Morphine Sulfate (Morphine) 2 mg IVP Q6H PRN PRN Reason: Pain, moderate (4-7) Last Admin: 04/04/17 05:35 Dose: 2 mg Morphine Sulfate (Morphine) 4 mg IVP Q6H PRN PRN Reason: Pain, severe (8-10) Ondansetron HCl (Zofran Inj) 4 mg IVP Q4H PRN PRN Reason: Nausea/Vomiting Last Admin: 04/04/17 08:02 Dose: 4 mg Pantoprazole Sodium (Protonix Inj) 40 mg IVP DAILY [facility] Last Admin: 04/04/17 10:15 Dose: 40 mg - Labs Labs: 04/04/17 06:15 04/04/17 06:15 PT 12.0 Seconds (9.9-11.8) H 04/04/17 06:15 INR 1.11 (0.93-1.08) H 04/04/17 06:15 APTT 28.0 Seconds (23.7-30.8) 04/04/17 06:15 - Constitutional Appears: No Acute Distress - Eye Exam Eye Exam: Normal appearance. absent: Scleral icterus - ENT Exam ENT Exam: Mucous Membranes Moist - Neck Exam Neck Exam: Normal Inspection - Respiratory Exam Respiratory Exam: NORMAL BREATHING PATTERN. absent: Respiratory Distress - Cardiovascular Exam Cardiovascular Exam: +S1, +S2 - GI/Abdominal Exam GI & Abdominal Exam: Soft, Tenderness, Normal Bowel Sounds. absent: Distended, Guarding, Rebound - Extremities Exam Extremities Exam: Calf Tenderness, Normal Capillary Refill. absent: Pedal Edema - Neurological Exam Neurological Exam: Alert, Awake, Oriented x3 Assessment and Plan - Assessment and Plan (Free Text) Assessment: Assessment: Acute cholecystitis Cholelithiasis Gouty arthritis Plan: Patient is scheduled for today Continue IV antibiotics Continue GI prophylaxis DVT prophylaxis Continue IV fluids for hydration Trend LFTs Further plans as per surgery Seen and discussed with Dr. Piedra. <Marty Piedra V - Last Filed: 04/04/17 21:52> Objective - Vital Signs/Intake and Output Vital Signs (last 24 hours): Temp Pulse Resp BP Pulse Ox 98.8 F 81 16 143/100 H 100 04/04/17 16:00 04/04/17 16:00 04/04/17 16:00 04/04/17 16:00 04/04/17 16:00 Intake and Output: 04/04/17 04/05/17 18:59 06:59 Intake Total 600 Balance 600 - Medications Medications: Current Medications Metronidazole (Flagyl) 500 mg in 100 mls @ 100 mls/hr IVPB Q8 [facility] PRN Reason: Protocol Last Admin: 04/04/17 21:31 Dose: 100 mls/hr Ceftriaxone Sodium (Rocephin 1 Gram Ivpb) 1 gm in 100 mls @ 100 mls/hr IVPB DAILY [facility] PRN Reason: Protocol Last Admin: 04/04/17 10:15 Dose: 100 mls/hr Sodium Chloride (Sodium Chloride 0.9%) 1,000 mls @ 150 mls/hr IV .Q6H40M [facility] Last Admin: 04/04/17 10:15 Dose: 150 mls/hr Morphine Sulfate (Morphine) 2 mg IVP Q6H PRN PRN Reason: Pain, moderate (4-7) Last Admin: 04/04/17 14:45 Dose: 2 mg Morphine Sulfate (Morphine) 4 mg IVP Q6H PRN PRN Reason: Pain, severe (8-10) Last Admin: 04/04/17 20:38 Dose: 4 mg Ondansetron HCl (Zofran Inj) 4 mg IVP Q4H PRN PRN Reason: Nausea/Vomiting Last Admin: 04/04/17 20:38 Dose: 4 mg Pantoprazole Sodium (Protonix Inj) 40 mg IVP DAILY [facility] Last Admin: 04/04/17 10:15 Dose: 40 mg - Labs Labs: 04/04/17 06:15 04/04/17 06:15 PT 12.0 Seconds (9.9-11.8) H 04/04/17 06:15 INR 1.11 (0.93-1.08) H 04/04/17 06:15 APTT 28.0 Seconds (23.7-30.8) 04/04/17 06:15 Attending/Attestation - Attestation I have personally seen and examined this patient.: Yes I have fully participated in the care of the patient.: Yes I have reviewed all pertinent clinical information, including history, physical exam and plan: Yes Notes (Text): this patient was seen and evaluated. Today this is an addendum to the GI progress report dictated by Arianna Cardenas APN. Patient is feeling much better. Abdomen soft only minimal tenderness to right upper quadrant area no rebound LFT has normalized. CBD normal. Plan to have laparoscopic cholecystectomy. Thank you very much for allowing us to participate in the care of the patient 04/04/17 21:51
--- NOTE | 2017-04-04 17:21 | CARD ---
APPROVED REPORT EKG Measurement Heart [id number] [place] 156P50 [id number] <Conclusion> Normal sinus rhythm Normal ECG
[2017-04-04] MEDS: Morphine 4 mg/ml ISec IVP PRN (20:38)
[2017-04-05] MEDS: Sodium Chloride 0.9% 1,000 ML IV SCH ×2 (01:33→09:53)
[2017-04-05] MEDS: Morphine 4 mg/ml ISec IVP PRN (02:19)
[2017-04-05] MEDS: metroNIDAZOLE IV 500 mg/100 ml 500 MG/100 ML BAG IVPB SCH ×3 (05:17→21:12)
[2017-04-05 08:34] LABS: BASO # 0.01 K/mm3 (0.0-2.0); BASO % 0.1 % (0.0-3.0); EOS # 0.3 (0.0-0.7); EOS % 3.9 % (1.5-5.0); GRAN # 4.46 (1.4-6.5); GRAN % 62.8 % (50.0-68.0); HEMATOCRIT 35.2 % (42.0-52.0); LYMPH # 1.7 (1.2-3.4); LYMPH % 23.2 % (22.0-35.0); MEAN CELL VOLUME 86.5 fl (80.0-105.0); MEAN CORPUSCULAR HEMOGLOBIN 29.7 pg (25.0-35.0); MEAN CORPUSCULAR HGB CONC 34.4 g/dl (31.0-37.0); MONO # 0.7 (0.1-0.6); RED CELL DISTRIBUTION WIDTH 12.3 % (11.5-14.5); WHITE BLOOD COUNT 7.1 10^3/ul (4.5-11.0)
[2017-04-05 08:46] LABS: ALB/GLOB RATIO 1.1 (1.1-1.8); ALKALINE PHOSPHATASE 119 U/L (38-126); ALT/SGPT 52 U/L (7-56); AST/SGOT 46 U/L (17-59); BILIRUBIN,TOTAL 0.7 mg/dL (0.2-1.3); BLOOD UREA NITROGEN 12 mg/dL (7-21); CALCIUM 8.9 mg/dL (8.4-10.5); CARBON DIOXIDE 28 mmol/L (21-33); CHLORIDE 101 mmol/L (98-107); GFR AFRICAN-AMERICAN > 60; GLUCOSE,RANDOM 97 mg/dL (70-110); POTASSIUM 4.3 mmol/L (3.6-5.0); SODIUM 140 mmol/L (132-148); TOTAL PROTEIN 7.5 g/dL (5.8-8.3)
--- NOTE | 2017-04-05 09:51 | CP.PCM.PN ---
<Fredy Lima - Last Filed: 04/05/17 09:52> Subjective - Date & Time of Evaluation Date of Evaluation: 04/05/17 Time of Evaluation: 07:07 - Subjective Subjective: Patient was seen and examined at bedside. The patient continues to report the RUQ pain. The patient denies any radiation and continues to rate it a 6/10 in severity. The patient was scheduled to have the laproscopic cholecystectomy yesterday however it was postponed. The patient is expected to have the procedure done today. The patient denies any chest pain, shortness of breath, nausea, vomiting , headaches, sore throat, or any other complaints. Objective - Vital Signs/Intake and Output Vital Signs (last 24 hours): Temp Pulse Resp BP Pulse Ox 98.6 F 82 20 143/84 98 04/05/17 07:30 04/05/17 07:30 04/05/17 07:30 04/05/17 07:30 04/05/17 07:30 Intake and Output: 04/05/17 04/05/17 06:59 18:59 Intake Total 2400 Output Total 0 Balance 2400 - Medications Medications: Current Medications Metronidazole (Flagyl) 500 mg in 100 mls @ 100 mls/hr IVPB Q8 [facility] PRN Reason: Protocol Last Admin: 04/05/17 05:17 Dose: 100 mls/hr Ceftriaxone Sodium (Rocephin 1 Gram Ivpb) 1 gm in 100 mls @ 100 mls/hr IVPB DAILY [facility] PRN Reason: Protocol Last Admin: 04/04/17 10:15 Dose: 100 mls/hr Sodium Chloride (Sodium Chloride 0.9%) 1,000 mls @ 150 mls/hr IV .Q6H40M [facility] Last Admin: 04/05/17 01:33 Dose: 150 mls/hr Morphine Sulfate (Morphine) 2 mg IVP Q6H PRN PRN Reason: Pain, moderate (4-7) Last Admin: 04/04/17 14:45 Dose: 2 mg Morphine Sulfate (Morphine) 4 mg IVP Q6H PRN PRN Reason: Pain, severe (8-10) Last Admin: 04/05/17 02:19 Dose: 4 mg Ondansetron HCl (Zofran Inj) 4 mg IVP Q4H PRN PRN Reason: Nausea/Vomiting Last Admin: 04/05/17 02:20 Dose: 4 mg Pantoprazole Sodium (Protonix Inj) 40 mg IVP DAILY [facility] Last Admin: 04/04/17 10:15 Dose: 40 mg - Labs Labs: 04/05/17 08:15 04/05/17 08:15 PT 12.0 Seconds (9.9-11.8) H 04/04/17 06:15 INR 1.11 (0.93-1.08) H 04/04/17 06:15 APTT 28.0 Seconds (23.7-30.8) 04/04/17 06:15 - Head Exam Head Exam: ATRAUMATIC, NORMAL INSPECTION, NORMOCEPHALIC - Eye Exam Eye Exam: EOMI, Normal appearance, PERRL Pupil Exam: NORMAL ACCOMODATION, PERRL - ENT Exam ENT Exam: Mucous Membranes Moist - Neck Exam Neck Exam: Full ROM, Normal Inspection. absent: Lymphadenopathy - Respiratory Exam Respiratory Exam: Clear to Ausculation Bilateral, NORMAL BREATHING PATTERN. absent: Accessory Muscle Use, Rales, Rhonchi - Cardiovascular Exam Cardiovascular Exam: REGULAR RHYTHM, RRR, +S1, +S2. absent: Gallop, Rubs - GI/Abdominal Exam GI & Abdominal Exam: Tenderness (RUQ tenderness upon palpation.), Normal Bowel Sounds - Extremities Exam Extremities Exam: Full ROM. absent: Tenderness - Back Exam Back Exam: NORMAL INSPECTION. absent: paraspinal tenderness - Neurological Exam Neurological Exam: Alert, Awake, CN II-XII Intact - Psychiatric Exam Psychiatric exam: Normal Affect, Normal Mood - Skin Skin Exam: Dry, Intact, Normal Color Assessment and Plan - Assessment and Plan (Free Text) Assessment: This is a 51 yr old male with a past medical history of gout who came in with RUQ pain. Plan: 1.Cholecystitis vs. biliary colic -Positive Jones's sign noted on physical exam. VS: 99f, 137/91, 98RA, 99HR -Ordered Abdominal u/s : showed thickened gall bladder and a gallstone within the duct. -T. Bili-0.6, ALT-57, AST-38 -Hida scan: consistent with acute cholecystitis and no signs of biliary obstruction -Surgery Consult appreciated. -GI consult appreciated. -Patient kept NPO and given bolus IV fluids (NS) -Continue IV fluids. Patient is medically cleared for surgery -Patient surgery was postponed yesterday. Patient expected to have surgery today. 2.Less likely ascending cholangitis vs. biliary colic -RUQ pain present on PE. Negative for jaundice and afebrile -Consider ERCP if Clinical picture doesn't improve after surgery. 3.Gout -Patient denies any recent flare up. -Last dose of Colchicine was taken six months ago. -Monitor and have patient follow up as outpatient. 4.GI ppx -Continue Protonix 5. DVT ppx -Continue SCD's <BaileyYan - Last Filed: 04/06/17 13:26> Objective - Vital Signs/Intake and Output Vital Signs (last 24 hours): Temp Pulse Resp BP Pulse Ox 98.2 F 71 20 128/87 98 04/06/17 07:30 04/06/17 07:30 04/06/17 07:30 04/06/17 07:30 04/06/17 07:30 Intake and Output: 04/06/17 04/06/17 06:59 18:59 Intake Total 480 Output Total 900 Balance -420 - Medications Medications: Current Medications Acetaminophen (Tylenol 325mg Tab) 975 mg PO Q8H [facility] Last Admin: 04/06/17 12:47 Dose: 975 mg Docusate Sodium (Colace) 100 mg PO BID [facility] Last Admin: 04/06/17 09:44 Dose: 100 mg Enoxaparin Sodium (Lovenox) 40 mg SC DAILY [facility] PRN Reason: Protocol Last Admin: 04/06/17 09:45 Dose: 40 mg Hydromorphone HCl (Dilaudid) 0.5 mg IVP Q3H PRN PRN Reason: Pain, moderate (4-7) Hydromorphone HCl (Dilaudid) 0.5 mg IVP Q15M PRN PRN Reason: Pain, moderate (4-7) Metronidazole (Flagyl) 500 mg in 100 mls @ 100 mls/hr IVPB Q8 [facility] PRN Reason: Protocol Last Admin: 04/06/17 07:46 Dose: 100 mls/hr Ceftriaxone Sodium (Rocephin 1 Gram Ivpb) 1 gm in 100 mls @ 100 mls/hr IVPB DAILY [facility] PRN Reason: Protocol Last Admin: 04/06/17 09:46 Dose: 100 mls/hr Sodium Chloride (Sodium Chloride 0.9%) 1,000 mls @ 150 mls/hr IV .Q6H40M [facility] Last Admin: 04/05/17 09:53 Dose: 150 mls/hr Labetalol HCl (Trandate) 10 mg IVP ONCE PRN PRN Reason: Diastolic blood pressure Last Admin: 04/05/17 18:20 Dose: 10 mg Ondansetron HCl (Zofran Inj) 4 mg IVP Q4H PRN PRN Reason: Nausea/Vomiting Last Admin: 04/05/17 02:20 Dose: 4 mg Pantoprazole Sodium (Protonix Inj) 40 mg IVP DAILY [facility] Last Admin: 04/06/17 09:45 Dose: 40 mg - Labs Labs: 04/06/17 07:00 04/06/17 07:00 PT 12.0 Seconds (9.9-11.8) H 04/04/17 06:15 INR 1.11 (0.93-1.08) H 04/04/17 06:15 APTT 28.0 Seconds (23.7-30.8) 04/04/17 06:15 Attending/Attestation - Attestation I have personally seen and examined this patient.: Yes I have fully participated in the care of the patient.: Yes I have reviewed all pertinent clinical information, including history, physical exam and plan: Yes Notes (Text): 04/06/17 13:24 Attending note; Patient seen and examined with resident. Patient is a 51-year-old male admitted with right upper quadrant pain. Patient with a history of gallstones now with recurrent biliary colic. Ultrasound showed gallstones. HIDA scan is positive for acute cholecystitis. Surgery evaluation appreciated. Nothing by mouth, IV fluids, IV antibiotics. Plan for laparoscopic cholecystectomy today by Dr. Negro. Upon discharge the patient will follow-up with PMD Dr. Vasquez.
[2017-04-05] MEDS: Morphine 2 mg/ml ISec IVP PRN (09:52)
[2017-04-05] MEDS: cefTRIAXone 1 gm 1 GM/100 ML BAG IVPB SCH (09:53)
--- NOTE | 2017-04-05 11:08 | CP.PCM.PN ---
Subjective - Date & Time of Evaluation Date of Evaluation: 04/04/17 Time of Evaluation: 08:00 - Subjective Subjective: General Surgery Progress Note for Dr. Negro Patient was set to have surgery today, but was rescheduled for 04/05 (tomorrow) because of emergent add-on of another patient to the OR schedule. Patient still has RUQ pain. denies N/V, diarrhea, F/C Objective - Vital Signs/Intake and Output Vital Signs (last 24 hours): Temp Pulse Resp BP Pulse Ox 98.6 F 82 20 143/84 98 04/05/17 07:30 04/05/17 07:30 04/05/17 07:30 04/05/17 07:30 04/05/17 07:30 Intake and Output: 04/05/17 04/05/17 06:59 18:59 Intake Total 2400 Output Total 0 Balance 2400 - Medications Medications: Current Medications Metronidazole (Flagyl) 500 mg in 100 mls @ 100 mls/hr IVPB Q8 [facility] PRN Reason: Protocol Last Admin: 04/05/17 05:17 Dose: 100 mls/hr Ceftriaxone Sodium (Rocephin 1 Gram Ivpb) 1 gm in 100 mls @ 100 mls/hr IVPB DAILY [facility] PRN Reason: Protocol Last Admin: 04/05/17 09:53 Dose: 100 mls/hr Sodium Chloride (Sodium Chloride 0.9%) 1,000 mls @ 150 mls/hr IV .Q6H40M [facility] Last Admin: 04/05/17 09:53 Dose: 150 mls/hr Morphine Sulfate (Morphine) 2 mg IVP Q6H PRN PRN Reason: Pain, moderate (4-7) Last Admin: 04/05/17 09:52 Dose: 2 mg Morphine Sulfate (Morphine) 4 mg IVP Q6H PRN PRN Reason: Pain, severe (8-10) Last Admin: 04/05/17 02:19 Dose: 4 mg Ondansetron HCl (Zofran Inj) 4 mg IVP Q4H PRN PRN Reason: Nausea/Vomiting Last Admin: 04/05/17 02:20 Dose: 4 mg Pantoprazole Sodium (Protonix Inj) 40 mg IVP DAILY [facility] Last Admin: 04/05/17 09:53 Dose: 40 mg - Labs Labs: 04/05/17 08:15 04/05/17 08:15 PT 12.0 Seconds (9.9-11.8) H 04/04/17 06:15 INR 1.11 (0.93-1.08) H 04/04/17 06:15 APTT 28.0 Seconds (23.7-30.8) 04/04/17 06:15 - Constitutional Appears: Non-toxic - Head Exam Head Exam: NORMAL INSPECTION - Eye Exam Eye Exam: EOMI, Normal appearance - ENT Exam ENT Exam: Mucous Membranes Moist - Neck Exam Neck Exam: Full ROM - Respiratory Exam Respiratory Exam: NORMAL BREATHING PATTERN. absent: Accessory Muscle Use, Respiratory Distress - Cardiovascular Exam Cardiovascular Exam: REGULAR RHYTHM. absent: Bradycardia, Tachycardia - GI/Abdominal Exam GI & Abdominal Exam: Guarding, Tenderness. absent: Hernia, Hypoactive Bowel Sounds, Rebound - Extremities Exam Extremities Exam: Full ROM, Normal Inspection. absent: Pedal Edema - Neurological Exam Neurological Exam: Alert, Awake, Oriented x3 - Psychiatric Exam Psychiatric exam: Normal Affect, Normal Mood - Skin Skin Exam: Dry, Intact, Normal Color, Warm
--- NOTE | 2017-04-05 11:15 | CP.PCM.PN ---
Subjective - Date & Time of Evaluation Date of Evaluation: 04/05/17 Time of Evaluation: 11:11 - Subjective Subjective: General Surgery Progress note for Dr. Negro PT S&E at bedside. Patient states he's frustrated and wanted to leave the hospital if the surgery is not happening today. The surgery was scheduled for 7: 30 pm today and an opening was found at 2pm. Patient was rescheduled to 2pm today (04/05). NAEON. Patient is in the same amount of pain yesterday. Denies N/V, CP, SOB, diarrhea. Objective - Vital Signs/Intake and Output Vital Signs (last 24 hours): Temp Pulse Resp BP Pulse Ox 98.6 F 82 20 143/84 98 04/05/17 07:30 04/05/17 07:30 04/05/17 07:30 04/05/17 07:30 04/05/17 07:30 Intake and Output: 04/05/17 04/05/17 06:59 18:59 Intake Total 2400 Output Total 0 Balance 2400 - Medications Medications: Current Medications Metronidazole (Flagyl) 500 mg in 100 mls @ 100 mls/hr IVPB Q8 [facility] PRN Reason: Protocol Last Admin: 04/05/17 05:17 Dose: 100 mls/hr Ceftriaxone Sodium (Rocephin 1 Gram Ivpb) 1 gm in 100 mls @ 100 mls/hr IVPB DAILY [facility] PRN Reason: Protocol Last Admin: 04/05/17 09:53 Dose: 100 mls/hr Sodium Chloride (Sodium Chloride 0.9%) 1,000 mls @ 150 mls/hr IV .Q6H40M [facility] Last Admin: 04/05/17 09:53 Dose: 150 mls/hr Morphine Sulfate (Morphine) 2 mg IVP Q6H PRN PRN Reason: Pain, moderate (4-7) Last Admin: 04/05/17 09:52 Dose: 2 mg Morphine Sulfate (Morphine) 4 mg IVP Q6H PRN PRN Reason: Pain, severe (8-10) Last Admin: 04/05/17 02:19 Dose: 4 mg Ondansetron HCl (Zofran Inj) 4 mg IVP Q4H PRN PRN Reason: Nausea/Vomiting Last Admin: 04/05/17 02:20 Dose: 4 mg Pantoprazole Sodium (Protonix Inj) 40 mg IVP DAILY [facility] Last Admin: 04/05/17 09:53 Dose: 40 mg - Labs Labs: 04/05/17 08:15 04/05/17 08:15 PT 12.0 Seconds (9.9-11.8) H 04/04/17 06:15 INR 1.11 (0.93-1.08) H 04/04/17 06:15 APTT 28.0 Seconds (23.7-30.8) 04/04/17 06:15 - Constitutional Appears: Non-toxic, Agitated - Head Exam Head Exam: NORMAL INSPECTION - Eye Exam Eye Exam: EOMI, Normal appearance - ENT Exam ENT Exam: Mucous Membranes Moist - Neck Exam Neck Exam: Full ROM - Respiratory Exam Respiratory Exam: Clear to Ausculation Bilateral, NORMAL BREATHING PATTERN. absent: Accessory Muscle Use, Respiratory Distress - Cardiovascular Exam Cardiovascular Exam: REGULAR RHYTHM. absent: Bradycardia, Tachycardia - GI/Abdominal Exam GI & Abdominal Exam: Soft, Tenderness, Normal Bowel Sounds. absent: Pulsatile Mass, Rebound - Extremities Exam Extremities Exam: Full ROM, Normal Inspection. absent: Joint Swelling, Pedal Edema - Neurological Exam Neurological Exam: Alert, Awake, Oriented x3 - Psychiatric Exam Psychiatric exam: Normal Affect, Normal Mood - Skin Skin Exam: Dry, Intact, Normal Color, Warm Assessment and Plan - Assessment and Plan (Free Text) Assessment: 51M cholecystitis, scheduled for procedure today to remove the gallbladder Plan: NPO scheduled for OR today IV ABX IVF c/w current medical management c/w pain control Lucrecia Zheng DO PGY1
--- NOTE | 2017-04-05 13:58 | CP.PCM.PN ---
Subjective - Date & Time of Evaluation Date of Evaluation: 04/05/17 Time of Evaluation: 10:00 - Subjective Subjective: Seen and examined at the bedside earlier this morning, was at the bedside. Patient nothing by mouth for cholecystectomy today. No acute overnight events reported. Still gets right upper quadrant pain, but no acute distress. Objective - Vital Signs/Intake and Output Vital Signs (last 24 hours): Temp Pulse Resp BP Pulse Ox 98.7 F 80 18 147/93 H 98 04/05/17 13:30 04/05/17 13:30 04/05/17 13:30 04/05/17 13:30 04/05/17 13:30 Intake and Output: 04/05/17 04/05/17 06:59 18:59 Intake Total 2400 Output Total 0 Balance 2400 - Medications Medications: Current Medications Metronidazole (Flagyl) 500 mg in 100 mls @ 100 mls/hr IVPB Q8 [facility] PRN Reason: Protocol Last Admin: 04/05/17 05:17 Dose: 100 mls/hr Ceftriaxone Sodium (Rocephin 1 Gram Ivpb) 1 gm in 100 mls @ 100 mls/hr IVPB DAILY [facility] PRN Reason: Protocol Last Admin: 04/05/17 09:53 Dose: 100 mls/hr Sodium Chloride (Sodium Chloride 0.9%) 1,000 mls @ 150 mls/hr IV .Q6H40M [facility] Last Admin: 04/05/17 09:53 Dose: 150 mls/hr Morphine Sulfate (Morphine) 2 mg IVP Q6H PRN PRN Reason: Pain, moderate (4-7) Last Admin: 04/05/17 09:52 Dose: 2 mg Morphine Sulfate (Morphine) 4 mg IVP Q6H PRN PRN Reason: Pain, severe (8-10) Last Admin: 04/05/17 02:19 Dose: 4 mg Ondansetron HCl (Zofran Inj) 4 mg IVP Q4H PRN PRN Reason: Nausea/Vomiting Last Admin: 04/05/17 02:20 Dose: 4 mg Pantoprazole Sodium (Protonix Inj) 40 mg IVP DAILY [facility] Last Admin: 04/05/17 09:53 Dose: 40 mg - Labs Labs: 04/05/17 08:15 04/05/17 08:15 PT 12.0 Seconds (9.9-11.8) H 04/04/17 06:15 INR 1.11 (0.93-1.08) H 04/04/17 06:15 APTT 28.0 Seconds (23.7-30.8) 04/04/17 06:15 - Constitutional Appears: No Acute Distress - Head Exam Head Exam: NORMOCEPHALIC - Eye Exam Eye Exam: Normal appearance. absent: Scleral icterus - ENT Exam ENT Exam: Mucous Membranes Moist - Neck Exam Neck Exam: Normal Inspection - Respiratory Exam Respiratory Exam: Clear to Ausculation Bilateral, NORMAL BREATHING PATTERN. absent: Respiratory Distress - Cardiovascular Exam Cardiovascular Exam: +S1, +S2 - GI/Abdominal Exam GI & Abdominal Exam: Soft, Tenderness, Normal Bowel Sounds. absent: Guarding, Organomegaly, Rebound - Extremities Exam Extremities Exam: Normal Capillary Refill. absent: Calf Tenderness, Pedal Edema - Neurological Exam Neurological Exam: Alert, Awake, Oriented x3 - Skin Skin Exam: Dry, Warm Assessment and Plan - Assessment and Plan (Free Text) Assessment: Assessment: Acute cholecystitis Cholelithiasis Gouty arthritis Plan: Patient is scheduled for OR today Continue IV antibiotics Continue GI prophylaxis DVT prophylaxis Continue IV fluids for hydration Trend LFTs As per surgery, patient is scheduled for OR today Seen and discussed with Dr. Piedra.
[2017-04-05] MEDS ORDERED: Iohexol 240 (50 ml) ONE (14:43)
[2017-04-05] MEDS ORDERED: Bupivacaine 0.5% Inj(30mL) ONE (14:43)
[2017-04-05] MEDS ORDERED: Rocuronium 10 mg/ml (5 ml) ONE ×2 (14:49→15:39)
[2017-04-05] MEDS ORDERED: Midazolam 2 MG/2 ML VIAL ONE (14:49)
[2017-04-05] MEDS ORDERED: Propofol 10 mg/ml Inj (20 ML) ONE ×2 (14:49→17:10)
[2017-04-05] MEDS ORDERED: Lidocaine 2% Inj (20ml) ONE (14:50)
[2017-04-05] MEDS ORDERED: Esmolol 100 mg/10ml Inj IV ONE (15:49)
[2017-04-05] MEDS ORDERED: Neostigmine Methylsulfate 3mg/3ml Syringe IV ONE (16:52)
[2017-04-05] MEDS ORDERED: Glycopyrrolate 0.2 mg/ml (2ml vial) ONE (16:52)
--- NOTE | 2017-04-05 17:53 | PCM.SURG1 ---
Surgeon's Initial Post Op Note - Surgeon's Notes Surgeon: Dr. Negro [employer]: Dr. Kwan PGY-2, Dr. Pierre PGY-2, Dr. Zheng PGY-1 Type of Anesthesia: General Endo Pre-Operative Diagnosis: acute cholecystitis Operative Findings: see operative report Post-Operative Diagnosis: see operative report Operation Performed: laparoscopic cholecystectomy Specimen/Specimens Removed: gallbladder Estimated Blood Loss: EBL {In ML}: 125 Blood Products Given: N/A Drains Used: No Drains Post-Op Condition: Good Date of Surgery/Procedure: 04/05/17 Time of Surgery/Procedure: 14:35
[2017-04-05] MEDS ORDERED: HYDROmorphone 0.5 mg/0.5 ml ISec IVP PRN ×2 (17:54→17:56)
[2017-04-05] MEDS ORDERED: Lactated Ringer's 1,000 ML IV SCH (17:56)
[2017-04-05] MEDS ORDERED: Labetalol 5 mg/ml Inj 20ML IVP PRN (18:14)
[2017-04-06 07:12] LABS: BASO # 0.01 K/mm3 (0.0-2.0); BASO % 0.1 % (0.0-3.0); EOS # 0.3 (0.0-0.7); EOS % 3.2 % (1.5-5.0); GRAN # 5.83 (1.4-6.5); GRAN % 64.1 % (50.0-68.0); HEMATOCRIT 35.3 % (42.0-52.0); LYMPH % 21.5 % (22.0-35.0); MEAN CELL VOLUME 85.7 fl (80.0-105.0); MEAN CORPUSCULAR HEMOGLOBIN 29.4 pg (25.0-35.0); MEAN CORPUSCULAR HGB CONC 34.3 g/dl (31.0-37.0); MEAN PLATELET VOLUME 9.1 fl (7.0-11.0); MONO % 11.1 % (1.0-6.0); RED CELL DISTRIBUTION WIDTH 12.4 % (11.5-14.5); WHITE BLOOD COUNT 9.1 10^3/ul (4.5-11.0)
--- NOTE | 2017-04-06 07:38 | CP.PCM.PN ---
Subjective - Date & Time of Evaluation Date of Evaluation: 04/06/17 Time of Evaluation: 07:00 - Subjective Subjective: SURGERY NOTE FOR DR. MARTIN 51M seen and examined at bedside. Patients states pain is minimal and controlled. Denies nausea, vomiting, fevers, chills. Tolerating diet. Objective - Vital Signs/Intake and Output Vital Signs (last 24 hours): Temp Pulse Resp BP Pulse Ox 98.8 F 88 18 141/96 H 100 04/05/17 18:50 04/05/17 20:32 04/05/17 18:50 04/05/17 20:32 04/05/17 18:50 Intake and Output: 04/06/17 04/06/17 06:59 18:59 Intake Total 480 Output Total 900 Balance -420 - Medications Medications: Current Medications Acetaminophen (Tylenol 325mg Tab) 975 mg PO Q8H [facility] Last Admin: 04/06/17 05:30 Dose: 975 mg Enoxaparin Sodium (Lovenox) 40 mg SC DAILY [facility] PRN Reason: Protocol Hydromorphone HCl (Dilaudid) 0.5 mg IVP Q3H PRN PRN Reason: Pain, moderate (4-7) Hydromorphone HCl (Dilaudid) 0.5 mg IVP Q15M PRN PRN Reason: Pain, moderate (4-7) Metronidazole (Flagyl) 500 mg in 100 mls @ 100 mls/hr IVPB Q8 [facility] PRN Reason: Protocol Last Admin: 04/05/17 21:12 Dose: 100 mls/hr Ceftriaxone Sodium (Rocephin 1 Gram Ivpb) 1 gm in 100 mls @ 100 mls/hr IVPB DAILY [facility] PRN Reason: Protocol Last Admin: 04/05/17 09:53 Dose: 100 mls/hr Sodium Chloride (Sodium Chloride 0.9%) 1,000 mls @ 150 mls/hr IV .Q6H40M [facility] Last Admin: 04/05/17 09:53 Dose: 150 mls/hr Labetalol HCl (Trandate) 10 mg IVP ONCE PRN PRN Reason: Diastolic blood pressure Last Admin: 04/05/17 18:20 Dose: 10 mg Ondansetron HCl (Zofran Inj) 4 mg IVP Q4H PRN PRN Reason: Nausea/Vomiting Last Admin: 04/05/17 02:20 Dose: 4 mg Pantoprazole Sodium (Protonix Inj) 40 mg IVP DAILY [facility] Last Admin: 04/05/17 09:53 Dose: 40 mg - Labs Labs: 04/06/17 07:00 04/05/17 08:15 PT 12.0 Seconds (9.9-11.8) H 04/04/17 06:15 INR 1.11 (0.93-1.08) H 04/04/17 06:15 APTT 28.0 Seconds (23.7-30.8) 04/04/17 06:15 - Constitutional Appears: Non-toxic, No Acute Distress - Respiratory Exam Respiratory Exam: Clear to Ausculation Bilateral, NORMAL BREATHING PATTERN - Cardiovascular Exam Cardiovascular Exam: REGULAR RHYTHM, +S1, +S2 - GI/Abdominal Exam GI & Abdominal Exam: Soft. absent: Distended, Firm, Guarding, Rigid, Tenderness , Rebound Additional comments: incisions clean dry and intact - Extremities Exam Extremities Exam: absent: Pedal Edema, Tenderness - Neurological Exam Neurological Exam: Alert, Awake Assessment and Plan - Assessment and Plan (Free Text) Assessment: 51M s/p laparoscopic cholecystectomy POD1 Plan: - ADAT - pain control, IVF - f/u labs - patient clear if tolerating diet Further recs discuss with Dr. Marky Pierre, PGY2
[2017-04-06 07:40] LABS: ALB/GLOB RATIO 1.1 (1.1-1.8); ALKALINE PHOSPHATASE 119 U/L (38-126); ALT/SGPT 71 U/L (7-56); AST/SGOT 62 U/L (17-59); BILIRUBIN,TOTAL 0.5 mg/dL (0.2-1.3); BLOOD UREA NITROGEN 13 mg/dL (7-21); CARBON DIOXIDE 29 mmol/L (21-33); CHLORIDE 99 mmol/L (98-107); GFR AFRICAN-AMERICAN > 60; GLUCOSE,RANDOM 105 mg/dL (70-110); SODIUM 139 mmol/L (132-148); TOTAL PROTEIN 7.2 g/dL (5.8-8.3)
[2017-04-06] MEDS: metroNIDAZOLE IV 500 mg/100 ml 500 MG/100 ML BAG IVPB SCH ×2 (07:46→13:16)
[2017-04-06 07:54] VITALS: BP 128/87; PULSE 71; RESP 20; TEMP 98.2; O2SAT 98
[2017-04-06] MEDS: cefTRIAXone 1 gm 1 GM/100 ML BAG IVPB SCH (09:46)
[2017-04-06] MEDS ORDERED: Enoxaparin 40 mg Syringe SC SCH (10:00)
--- NOTE | 2017-04-06 12:59 | CP.PCM.DIS ---
<Fredy Lima - Last Filed: 04/06/17 16:42> Provider - Provider Date of Admission: 04/03/17 16:37 Attending physician: Yan Avalos MD Primary care physician: Jose Vasquez MD Time Spent in preparation of Discharge (in minutes): 40 Hospital Course - Lab Results Lab Results: Micro Results 04/05/17 18:17 Other: Please Indicate Gram Stain - Final 04/03/17 17:11 Urine Urine Culture - Final No Growth (<1,000 CFU/ML) Most Recent Lab Values WBC 9.1 10^3/ul (4.5-11.0) D 04/06/17 07:00 RBC 4.12 10^6/uL (3.5-6.1) 04/06/17 07:00 Hgb 12.1 g/dL (14.0-18.0) L 04/06/17 07:00 Hct 35.3 % (42.0-52.0) L 04/06/17 07:00 MCV 85.7 fl (80.0-105.0) 04/06/17 07:00 MCH 29.4 pg (25.0-35.0) 04/06/17 07:00 MCHC 34.3 g/dl (31.0-37.0) 04/06/17 07:00 RDW 12.4 % (11.5-14.5) 04/06/17 07:00 Plt Count 449 10^3/uL (120.0-450.0) 04/06/17 07:00 MPV 9.1 fl (7.0-11.0) 04/06/17 07:00 Gran % 64.1 % (50.0-68.0) 04/06/17 07:00 Lymph % (Auto) 21.5 % (22.0-35.0) L 04/06/17 07:00 [place] % (Auto) 11.1 % (1.0-6.0) H 04/06/17 07:00 Eos % (Auto) 3.2 % (1.5-5.0) 04/06/17 07:00 Baso % (Auto) 0.1 % (0.0-3.0) 04/06/17 07:00 Gran # 5.83 (1.4-6.5) 04/06/17 07:00 Lymph # 2.0 (1.2-3.4) 04/06/17 07:00 [place] # 1.0 (0.1-0.6) H 04/06/17 07:00 Eos # 0.3 (0.0-0.7) 04/06/17 07:00 Baso # 0.01 K/mm3 (0.0-2.0) 04/06/17 07:00 PT 12.0 Seconds (9.9-11.8) H 04/04/17 06:15 INR 1.11 (0.93-1.08) H 04/04/17 06:15 APTT 28.0 Seconds (23.7-30.8) 04/04/17 06:15 pO2 34 mm/Hg (30-55) 04/03/17 14:50 VBG pH 7.44 (7.32-7.43) H 04/03/17 14:50 VBG pCO2 44.0 (40-60) 04/03/17 14:50 VBG HCO3 29.9 mmol/l (21-28) H 04/03/17 14:50 VBG Total CO2 31.3 mmol.L (22-28) H 04/03/17 14:50 VBG O2 Sat (Calc) 76.8 % (40-65) H 04/03/17 14:50 VBG Base Excess 5.0 mmol/L (0.0-2.0) H 04/03/17 14:50 VBG Potassium 4.4 mmol/L (3.6-5.2) 04/03/17 14:50 Sodium 135.0 mmol/L (132-148) 04/03/17 14:50 Chloride 99.0 mmol/L (98-107) 04/03/17 14:50 Glucose 108 mg/dl (75-110) 04/03/17 14:50 Lactate 1.4 mmol/L (0.7-2.1) 04/03/17 14:50 FiO2 21.0 % 04/03/17 14:50 Sodium 139 mmol/L (132-148) 04/06/17 07:00 Potassium 4.0 mmol/L (3.6-5.0) 04/06/17 07:00 Chloride 99 mmol/L (98-107) 04/06/17 07:00 Carbon Dioxide 29 mmol/L (21-33) 04/06/17 07:00 Anion Gap 15 (10-20) 04/06/17 07:00 BUN 13 mg/dL (7-21) 04/06/17 07:00 Creatinine 0.9 mg/dL (0.5-1.4) 04/06/17 07:00 Est GFR ( Amer) > 60 04/06/17 07:00 Est GFR (Non-Af Amer) > 60 04/06/17 07:00 Random Glucose 105 mg/dL (70-110) 04/06/17 07:00 Calcium 9.0 mg/dL (8.4-10.5) 04/06/17 07:00 Total Bilirubin 0.5 mg/dL (0.2-1.3) 04/06/17 07:00 AST 62 U/L (17-59) H D 04/06/17 07:00 ALT 71 U/L (7-56) H 04/06/17 07:00 Alkaline Phosphatase 119 U/L (38-126) 04/06/17 07:00 Lactate Dehydrogenase 413 U/L (333-699) 04/03/17 14:50 Total Creatine Kinase 113 U/L (35-230) 04/03/17 14:50 Troponin I < 0.01 ng/mL 04/03/17 14:50 Total Protein 7.2 g/dL (5.8-8.3) 04/06/17 07:00 Albumin 3.9 g/dL (3.0-4.8) 04/06/17 07:00 Globulin 3.4 gm/dL 04/06/17 07:00 Albumin/Globulin Ratio 1.1 (1.1-1.8) 04/06/17 07:00 Amylase 47 U/L (35-125) 04/03/17 14:50 Lipase 65 U/L (23-300) 04/03/17 14:50 Venous Blood Potassium 4.4 mmol/L (3.6-5.2) 04/03/17 14:50 Urine Color Yellow (YELLOW) 04/03/17 17:11 Urine Appearance Clear (CLEAR) 04/03/17 17:11 Urine pH 6.5 (4.7-8.0) 04/03/17 17:11 Ur Specific [place] <= 1.005 (1.005-1.035) 04/03/17 17:11 Urine Protein Negative mg/dL (<30 mg/dL) 04/03/17 17:11 Urine Glucose (UA) Negative mg/dL (NEGATIVE) 04/03/17 17:11 Urine Ketones Negative mg/dL (NEGATIVE) 04/03/17 17:11 Urine Blood Negative (NEGATIVE) 04/03/17 17:11 Urine Nitrate Negative (NEGATIVE) 04/03/17 17:11 Urine Bilirubin Negative (NEGATIVE) 04/03/17 17:11 Urine Urobilinogen 0.2 E.U./dL (<1 E.U./dL) 04/03/17 17:11 Ur Leukocyte Esterase Negative David/uL (NEGATIVE) 04/03/17 17:11 Blood Type B POSITIVE 04/04/17 06:20 Blood Type Confirm B POSITIVE 04/04/17 07:27 Antibody Screen Negative 04/04/17 06:20 BBK History Checked No verified bt 04/04/17 06:20 - Hospital Course Hospital Course: This is a 51 yr. old male with a past medical history gout who came into E.D. complaining of RUQ pain for 9 days . The patient described the pain as sharp in nature and radiation to back initially. The patient was given pain medicine in the emergency department, iv fluids, and iv antibiotics. They ordered a ultrasound which showed stones in the gallbladder as well as a thickened wall. The patient was admitted and put on NPO. The patient had a HIDA scan done that was consistent with acute cholecystitis. The patient was seen and evaluated by Surgery and GI and it was decided to have cholecystectomy the following day. The patient completed the surgery with no complications. The patient was tolerating food PO, moving gas and able to walk around with little discomfort. The patient was discharged with instructions to follow up with his PMD Dr. Vasquez and get his liver enzymes checked and also with Dr. Negro within one week of discharge. Discharge Exam - Head Exam Head Exam: NORMOCEPHALIC - Eye Exam Eye Exam: EOMI, Normal appearance, PERRL. absent: Periorbital tenderness Pupil Exam: NORMAL ACCOMODATION, PERRL. absent: Unequal - Respiratory Exam Respiratory Exam: Clear to PA & Lateral, NORMAL BREATHING PATTERN, UNREMARKABLE. absent: Accessory Muscle Use, Chest Wall Tenderness - Cardiovascular Exam Cardiovascular Exam: REGULAR RHYTHM, RRR, +S1, +S2. absent: Gallop, Rubs - GI/Abdominal Exam GI & Abdominal Exam: Normal Bowel Sounds. absent: Organomegaly, Pulsatile Mass Additional comments: Three incision closed incision sites appreciated. - Extremities Exam Extremities exam: full ROM - Back Exam Back exam: NORMAL INSPECTION. absent: paraspinal tenderness - Neurological Exam Neurological exam: Alert, CN II-XII Intact, Normal Gait, Oriented x3 - Psychiatric Exam Psychiatric exam: Normal Affect, Normal Mood - Skin Skin Exam: Dry, Intact, Normal Color Discharge Plan - Follow Up Plan Condition: FAIR Disposition: HOME/ ROUTINE Instructions: Cholecystitis (DC), Gallstones (DC), Laparoscopic Cholecystectomy (DC), Acute Nausea and Vomiting (DC) Additional Instructions: Patient instructed to follow up with PMD Dr. Vasquez to check liver enzymes within one week of discharge. Patient instructed to follow up with Dr. Negro within one week of discharge. Patient advised to return to E.D. for any new or worsening symptoms. Referrals: Jose Vasquez MD [Primary Care Provider] - Papito Negro MD [Staff Provider] - <Yan Avalos - Last Filed: 04/06/17 17:52> Provider - Provider Date of Admission: 04/03/17 16:37 Attending physician: Yan Avalos MD Primary care physician: Jose Vasquez MD Hospital Course - Lab Results Lab Results: Micro Results 04/05/17 18:17 Other: Please Indicate Gram Stain - Final 04/03/17 17:11 Urine Urine Culture - Final No Growth (<1,000 CFU/ML) Most Recent Lab Values WBC 9.1 10^3/ul (4.5-11.0) D 04/06/17 07:00 RBC 4.12 10^6/uL (3.5-6.1) 04/06/17 07:00 Hgb 12.1 g/dL (14.0-18.0) L 04/06/17 07:00 Hct 35.3 % (42.0-52.0) L 04/06/17 07:00 MCV 85.7 fl (80.0-105.0) 04/06/17 07:00 MCH 29.4 pg (25.0-35.0) 04/06/17 07:00 MCHC 34.3 g/dl (31.0-37.0) 04/06/17 07:00 RDW 12.4 % (11.5-14.5) 04/06/17 07:00 Plt Count 449 10^3/uL (120.0-450.0) 04/06/17 07:00 MPV 9.1 fl (7.0-11.0) 04/06/17 07:00 Gran % 64.1 % (50.0-68.0) 04/06/17 07:00 Lymph % (Auto) 21.5 % (22.0-35.0) L 04/06/17 07:00 [place] % (Auto) 11.1 % (1.0-6.0) H 04/06/17 07:00 Eos % (Auto) 3.2 % (1.5-5.0) 04/06/17 07:00 Baso % (Auto) 0.1 % (0.0-3.0) 04/06/17 07:00 Gran # 5.83 (1.4-6.5) 04/06/17 07:00 Lymph # 2.0 (1.2-3.4) 04/06/17 07:00 [place] # 1.0 (0.1-0.6) H 04/06/17 07:00 Eos # 0.3 (0.0-0.7) 04/06/17 07:00 Baso # 0.01 K/mm3 (0.0-2.0) 04/06/17 07:00 PT 12.0 Seconds (9.9-11.8) H 04/04/17 06:15 INR 1.11 (0.93-1.08) H 04/04/17 06:15 APTT 28.0 Seconds (23.7-30.8) 04/04/17 06:15 pO2 34 mm/Hg (30-55) 04/03/17 14:50 VBG pH 7.44 (7.32-7.43) H 04/03/17 14:50 VBG pCO2 44.0 (40-60) 04/03/17 14:50 VBG HCO3 29.9 mmol/l (21-28) H 04/03/17 14:50 VBG Total CO2 31.3 mmol.L (22-28) H 04/03/17 14:50 VBG O2 Sat (Calc) 76.8 % (40-65) H 04/03/17 14:50 VBG Base Excess 5.0 mmol/L (0.0-2.0) H 04/03/17 14:50 VBG Potassium 4.4 mmol/L (3.6-5.2) 04/03/17 14:50 Sodium 135.0 mmol/L (132-148) 04/03/17 14:50 Chloride 99.0 mmol/L (98-107) 04/03/17 14:50 Glucose 108 mg/dl (75-110) 04/03/17 14:50 Lactate 1.4 mmol/L (0.7-2.1) 04/03/17 14:50 FiO2 21.0 % 04/03/17 14:50 Sodium 139 mmol/L (132-148) 04/06/17 07:00 Potassium 4.0 mmol/L (3.6-5.0) 04/06/17 07:00 Chloride 99 mmol/L (98-107) 04/06/17 07:00 Carbon Dioxide 29 mmol/L (21-33) 04/06/17 07:00 Anion Gap 15 (10-20) 04/06/17 07:00 BUN 13 mg/dL (7-21) 04/06/17 07:00 Creatinine 0.9 mg/dL (0.5-1.4) 04/06/17 07:00 Est GFR ( Amer) > 60 04/06/17 07:00 Est GFR (Non-Af Amer) > 60 04/06/17 07:00 Random Glucose 105 mg/dL (70-110) 04/06/17 07:00 Calcium 9.0 mg/dL (8.4-10.5) 04/06/17 07:00 Total Bilirubin 0.5 mg/dL (0.2-1.3) 04/06/17 07:00 AST 62 U/L (17-59) H D 04/06/17 07:00 ALT 71 U/L (7-56) H 04/06/17 07:00 Alkaline Phosphatase 119 U/L (38-126) 04/06/17 07:00 Lactate Dehydrogenase 413 U/L (333-699) 04/03/17 14:50 Total Creatine Kinase 113 U/L (35-230) 04/03/17 14:50 Troponin I < 0.01 ng/mL 04/03/17 14:50 Total Protein 7.2 g/dL (5.8-8.3) 04/06/17 07:00 Albumin 3.9 g/dL (3.0-4.8) 04/06/17 07:00 Globulin 3.4 gm/dL 04/06/17 07:00 Albumin/Globulin Ratio 1.1 (1.1-1.8) 04/06/17 07:00 Amylase 47 U/L (35-125) 04/03/17 14:50 Lipase 65 U/L (23-300) 04/03/17 14:50 Venous Blood Potassium 4.4 mmol/L (3.6-5.2) 04/03/17 14:50 Urine Color Yellow (YELLOW) 04/03/17 17:11 Urine Appearance Clear (CLEAR) 04/03/17 17:11 Urine pH 6.5 (4.7-8.0) 04/03/17 17:11 Ur Specific [place] <= 1.005 (1.005-1.035) 04/03/17 17:11 Urine Protein Negative mg/dL (<30 mg/dL) 04/03/17 17:11 Urine Glucose (UA) Negative mg/dL (NEGATIVE) 04/03/17 17:11 Urine Ketones Negative mg/dL (NEGATIVE) 04/03/17 17:11 Urine Blood Negative (NEGATIVE) 04/03/17 17:11 Urine Nitrate Negative (NEGATIVE) 04/03/17 17:11 Urine Bilirubin Negative (NEGATIVE) 04/03/17 17:11 Urine Urobilinogen 0.2 E.U./dL (<1 E.U./dL) 04/03/17 17:11 Ur Leukocyte Esterase Negative David/uL (NEGATIVE) 04/03/17 17:11 Blood Type B POSITIVE 04/04/17 06:20 Blood Type Confirm B POSITIVE 04/04/17 07:27 Antibody Screen Negative 04/04/17 06:20 BBK History Checked No verified bt 04/04/17 06:20 Attending/Attestation - Attestation I have personally seen and examined this patient.: Yes I have fully participated in the care of the patient.: Yes I have reviewed all pertinent clinical information, including history, physical exam and plan: Yes Notes (Text): 04/06/17 17:49 Attending note; Patient seen and examined with resident. Patient is a 51-year-old male admitted with right upper quadrant pain. Patient with a history of gallstones now with recurrent biliary colic. Ultrasound showed gallstones. HIDA scan is positive for acute cholecystitis. Status post lap cholecystectomy. Patient is tolerating diet. Denies any pain. Ambulating fine. Mildly elevated LFTs; GI evaluation appreciated. Patient will be discharged home. Patient will get repeat LFTs in 2 days. Intraoperative cholangiogram negative per surgery. Upon discharge the patient will follow-up with PMD Dr. Vasquez. Diagnosis; Acute cholecystitis Status post laparoscopic cholecystectomy elevated LFTs
--- NOTE | 2017-04-06 14:05 | CP.PCM.PN ---
Subjective - Date & Time of Evaluation Date of Evaluation: 04/06/17 Time of Evaluation: 10:35 - Subjective Subjective: Seen and examined at the bedside earlier today, chart was reviewed. Patient is status post laparoscopic cholecystectomy postoperative day #1. Patient denies fever, chills, nausea or vomiting. Tolerated solids this morning, passing flatus/belching, no BM yet. No acute overnight events reported. Objective - Vital Signs/Intake and Output Vital Signs (last 24 hours): Temp Pulse Resp BP Pulse Ox 98.2 F 71 20 128/87 98 04/06/17 07:30 04/06/17 07:30 04/06/17 07:30 04/06/17 07:30 04/06/17 07:30 Intake and Output: 04/06/17 04/06/17 06:59 18:59 Intake Total 480 Output Total 900 Balance -420 - Medications Medications: Current Medications Acetaminophen (Tylenol 325mg Tab) 975 mg PO Q8H [facility] Last Admin: 04/06/17 12:47 Dose: 975 mg Docusate Sodium (Colace) 100 mg PO BID [facility] Last Admin: 04/06/17 09:44 Dose: 100 mg Enoxaparin Sodium (Lovenox) 40 mg SC DAILY [facility] PRN Reason: Protocol Last Admin: 04/06/17 09:45 Dose: 40 mg Hydromorphone HCl (Dilaudid) 0.5 mg IVP Q3H PRN PRN Reason: Pain, moderate (4-7) Hydromorphone HCl (Dilaudid) 0.5 mg IVP Q15M PRN PRN Reason: Pain, moderate (4-7) Metronidazole (Flagyl) 500 mg in 100 mls @ 100 mls/hr IVPB Q8 [facility] PRN Reason: Protocol Last Admin: 04/06/17 13:16 Dose: 100 mls/hr Ceftriaxone Sodium (Rocephin 1 Gram Ivpb) 1 gm in 100 mls @ 100 mls/hr IVPB DAILY [facility] PRN Reason: Protocol Last Admin: 04/06/17 09:46 Dose: 100 mls/hr Sodium Chloride (Sodium Chloride 0.9%) 1,000 mls @ 150 mls/hr IV .Q6H40M [facility] Last Admin: 04/05/17 09:53 Dose: 150 mls/hr Labetalol HCl (Trandate) 10 mg IVP ONCE PRN PRN Reason: Diastolic blood pressure Last Admin: 04/05/17 18:20 Dose: 10 mg Ondansetron HCl (Zofran Inj) 4 mg IVP Q4H PRN PRN Reason: Nausea/Vomiting Last Admin: 04/05/17 02:20 Dose: 4 mg Pantoprazole Sodium (Protonix Inj) 40 mg IVP DAILY [facility] Last Admin: 04/06/17 09:45 Dose: 40 mg - Labs Labs: 04/06/17 07:00 04/06/17 07:00 PT 12.0 Seconds (9.9-11.8) H 04/04/17 06:15 INR 1.11 (0.93-1.08) H 04/04/17 06:15 APTT 28.0 Seconds (23.7-30.8) 04/04/17 06:15 - Constitutional Appears: No Acute Distress - Head Exam Head Exam: NORMOCEPHALIC - Eye Exam Eye Exam: Normal appearance. absent: Scleral icterus - ENT Exam ENT Exam: Mucous Membranes Moist - Neck Exam Neck Exam: Normal Inspection - Respiratory Exam Respiratory Exam: Clear to Ausculation Bilateral, NORMAL BREATHING PATTERN. absent: Respiratory Distress - Cardiovascular Exam Cardiovascular Exam: +S1, +S2 - GI/Abdominal Exam GI & Abdominal Exam: Soft, Normal Bowel Sounds. absent: Guarding, Tenderness, Organomegaly, Rebound Additional comments: laparoscopic sites with Dura Cobb, dry and intact Assessment and Plan - Assessment and Plan (Free Text) Assessment: Assessment: status post laparoscopic cholecystectomy for Acute cholecystitis Cholelithiasis Gouty arthritis Plan: diet as tolerated, recommend low fat diet Monitor LFTs, mild elevation this morning Continue GI prophylaxis Discuss with Dr. Avalos patient can be discharged home, patient should follow -up with PCP to follow up LFTs in 1 week. Seen and discussed with Dr. Piedra.
== END 2017-04-06 16:52 | disposition home or self-care (01) | DRG 419 ==
LOC: ED 13:52 → ERH 16:37 → 5RNO 18:10
PROVIDERS: ADMIT Internal Medicine; ATTEND Internal Medicine
PROC: 0FT44ZZ Resection of Gallbladder, Percutaneous Endoscopic Approach (ICD-10-PCS; principal; 2017-04-05 19:15)
DX: K80.12 Calculus of gallbladder with acute and chronic cholecystitis without obstruction (principal); M10.9 Gout, unspecified; R79.89 Other specified abnormal findings of blood chemistry; Z96.651 Presence of right artificial knee joint; Z87.01 Personal history of pneumonia (recurrent)